=== PATIENT | female | born 1975 | race Two or more races ===

== ENCOUNTER → 2019-01-13 | Outpatient (REF) | payer OTHER ==
[~2019-01-13] MED LIST: CHOL100029 PO; FERR325T3 PO; FEXO180T58 PO; OLOP0.1D OS; PREP1TAB3 PO; PROM25TA12 PO; SING10TA32 PO; TIZA2CAP PO; VALT1TAB PO; WELLTAB38 PO
[2019-01-13 20:21] LABS: COMPLEMENT C3 126 MG/DL (90-180); COMPLEMENT C4 27 MG/DL (10-40)
[2019-01-13 20:39] LABS: CREATININE,RANDOM URINE 78.9 MG/DL; TOTAL PROTEIN,RANDOM URINE 9.3 MG/DL (0.0-12.0)
[2019-01-18 00:06] LABS: ANA (HEP2) Positive (.)
== END ==
LOC: M SFHCRHEU 15:47
PROVIDERS: ATTEND Internal Medicine Rheumatology
DX: R76.8 Other specified abnormal immunological findings in serum (principal)

== ENCOUNTER → 2020-01-18 | Outpatient (CLI) | payer OTHER ==
[~2020-01-18] MED LIST changes: +ALLE180T33 PO; +CETI10CH PO; +D31000TA2 PO; +FERR150C PO; +FOLI1TAB11 PO; +METHACHOLINE KIT (J7674) INH ONE; +vit d 3 PO
--- NOTE | 2020-01-18 11:49 | PFTRPT ---
Visit Date: 01/18/2020 Second ID: [id number] Referring Doctor: LUIS ALBERTO FLANAGAN Height: 63.00 Inches Weight: 150.00 Lbs BSA: 1.71 Diagnosis: R05 QUALITY: Study of excellent technical quality. PROCEDURE: Under protocol, methacholine was administered. At a dose of 2.5 mg or 13.875 CDUs, a 39% decline of the FEV1 was noted. PC of 0.51 is significant. Flow rates did return to baseline post-bronchodilator administration. IMPRESSION: Positive methacholine challenge study. MTDD
== END ==
LOC: M CARPUL 10:50
PROVIDERS: ATTEND Nurse Practitioner Family
DX: R05 Cough (principal)
CPT/HCPCS: 94070; J7674

== ENCOUNTER 2020-01-27 05:42 | Emergency (ER) | payer OTHER ==
[~2020-01-27] VITALS: Ht 160 cm; Wt 69.0 kg
[~2020-01-27 05:42] MED LIST changes: -ALLE180T33 PO; -CETI10CH PO; -D31000TA2 PO; -METHACHOLINE KIT (J7674) INH ONE; -vit d 3 PO
[2020-01-27] MEDS ORDERED: CETI10CH PO (05:53)
[2020-01-27] MEDS ORDERED: ALLE180T33 PO (05:53)
[2020-01-27 06:41] LABS: BASO # 0.1 10^3/uL (0.0-0.2); EOS # 0.4 10^3/uL (0.0-0.5); EOS % 4.2 % (0.0-3.0); HEMATOCRIT 34.1 % (36.0-47.0); HEMOGLOBIN 11.2 g/dl (12.0-15.5); LYMPH # 2.9 10^3/uL (1.5-5.0); LYMPH % 28.6 % (24.0-44.0); MEAN CORPUSCULAR HEMOGLOBIN 27.4 pg (27.0-33.0); MEAN CORPUSCULAR HGB CONC 32.8 g/dl (32.0-36.5); MEAN CORPUSCULAR VOLUME 83.4 fl (80.0-96.0); MONO % 9.6 % (0.0-5.0); NEUTROPHILS # 5.7 10^3/uL (1.5-8.5); NEUTROPHILS % 56.3 % (36.0-66.0); PLATELET COUNT, AUTOMATED 347 10^3/uL (150-450); RED BLOOD COUNT 4.09 10^6/uL (4.00-5.40)
[2020-01-27 07:05] LABS: ALBUMIN 3.3 GM/DL (3.2-5.2); ALT/SGPT 13 U/L (12-78); BILIRUBIN,DIRECT < 0.1 MG/DL (0.0-0.2); BILIRUBIN,TOTAL 0.3 MG/DL (0.2-1.0); BLOOD UREA NITROGEN 11 MG/DL (7-18); CALCIUM LEVEL 8.8 MG/DL (8.5-10.1); CARBON DIOXIDE LEVEL 22 MEQ/L (21-32); CHLORIDE LEVEL 108 MEQ/L (98-107); CK-MB VALUE MASS < 1.0 NG/ML (<3.6); CPK CREATINE PHOSPHOKINASE 89 U/L (26-192); CREATININE FOR GFR 0.85 MG/DL (0.55-1.30); GLOMERULAR FILTRATION RATE > 60.0 (>58); GLUCOSE, FASTING 78 MG/DL (70-100); LIPASE 107 U/L (73-393); MB/CK RELATIVE INDEX 1.12 (< OR =4); POTASSIUM SERUM 4.1 MEQ/L (3.5-5.1); SODIUM LEVEL 137 MEQ/L (136-145); TOTAL PROTEIN 7.1 GM/DL (6.4-8.2); TROPONIN I < 0.02 NG/ML (< 0.10)
[2020-01-27 07:08] LABS: INR 0.96
[2020-01-27] MEDS ORDERED: ISOVUE-370 76% 100ML VIAL As Ordered ONE (07:22)
--- NOTE | 2020-01-27 07:29 | REPVR ---
PROCEDURE INFORMATION: Exam: XR Chest, 1 View Exam date and time: 01/27/2020 6:44 AM Age: 44 years old Clinical indication: Other: Chest pain TECHNIQUE: Imaging protocol: XR of the chest Views: 1 view. COMPARISON: CR CHEST, 2 VIEWS - OUTSIDE PRIOR 10/23/2019 8:16 AM FINDINGS: Limitations: Multiple EKG leads are superimposed on the chest. Lungs: Unremarkable. No consolidation. Pleural space: Unremarkable. No pleural effusion. No pneumothorax. Heart/Mediastinum: Unremarkable. No cardiomegaly. Bones/joints: Unremarkable. IMPRESSION: No acute findings. Electronically signed by: Wei Woo On 01/27/2020 07:29:37 AM
--- NOTE | 2020-01-27 07:47 | REPVR ---
PROCEDURE INFORMATION: Exam: CT Angiography Chest With Contrast Exam date and time: 01/27/2020 7:31 AM Age: 44 years old Clinical indication: Chest pain; Type not specified; Additional info: Chest pain w/ HX of blood clots TECHNIQUE: Imaging protocol: Computed tomographic angiography of the chest with intravenous contrast. 3D rendering (Not supervised by radiologist): MIP and/or 3D reconstructed images were created by the technologist. Radiation optimization: All CT scans at this facility use at least one of these dose optimization techniques: automated exposure control; mA and/or kV adjustment per patient size (includes targeted exams where dose is matched to clinical indication); or iterative reconstruction. Contrast material: ISOVUE 370; Contrast volume: 75 ml; Contrast route: INTRAVENOUS (IV); COMPARISON: CR PORTABLE CHEST X-RAY 01/27/2020 6:12 AM FINDINGS: Pulmonary arteries: There is no evidence of peripheral filling defects within the pulmonary arterial circulation to suggest pulmonary embolism. Aorta: Unremarkable. No aortic aneurysm. No aortic dissection. Thyroid: The thyroid gland is normal. Lungs: Unremarkable. No consolidation. No masses. Pleural space: Unremarkable. No pneumothorax. No pleural effusion. Heart: The RV/LV ratio is 43/45 mm. The pulmonary artery density is 320 units. Lymph nodes: Unremarkable. No enlarged lymph nodes. Liver: A sharply defined 9 mm hypodense lesion of liver segment 2 on axial image 144 probably represents a simple cyst. There are several other similar smaller lesions throughout the liver. The liver is otherwise unremarkable. Gallbladder and bile ducts: The gallbladder is contracted but otherwise normal. The gallbladder is contracted but otherwise normal. Pancreas: The pancreas is normal. Adrenals: The adrenal glands are normal. Bones/joints: Unremarkable. No acute fracture. Soft tissues: Unremarkable. IMPRESSION: 1. A sharply defined 9 mm hypodense lesion of liver segment 2 on axial image 144 probably represents a simple cyst. There are several other similar smaller lesions throughout the liver. The liver is otherwise unremarkable. 2. The RV/LV ratio is 43/45 mm. The pulmonary artery density is 320 units. 3. There is no evidence of peripheral filling defects within the pulmonary arterial circulation to suggest pulmonary embolism. Electronically signed by: Wei Woo On 01/27/2020 07:46:59 AM
[2020-01-27 08:08] LABS: CK-MB VALUE MASS < 1.0 NG/ML (<3.6); CPK CREATINE PHOSPHOKINASE 83 U/L (26-192); TROPONIN I < 0.02 NG/ML (< 0.10)
[2020-01-27 08:34] VITALS: BP 107/61
--- NOTE | 2020-01-28 05:40 | ECGEPIP ---
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
[2020-02-05] MEDS ORDERED: vit d 3 PO (13:21)
[2020-02-05] MEDS ORDERED: D31000TA2 PO (13:21)
== END 2020-01-27 08:36 | disposition home or self-care (01) ==
LOC: M ED 05:42
DX: R07.9 Chest pain, unspecified (principal); J45.909 Unspecified asthma, uncomplicated; Z86.718 Personal history of other venous thrombosis and embolism; Z88.8 Allergy status to other drugs, medicaments and biological substances
CPT/HCPCS: 36415; 71045; 71275; 80048; 80076; 82550; 82553; 83690; 84484; 85025; 85610; 93005; 93041; 94760; 99285; Q9967

== ENCOUNTER 2020-06-24 21:56 | Emergency (ER) | payer OTHER ==
[~2020-06-24] VITALS: Ht 160 cm; Wt 66.8 kg
[~2020-06-24 21:56] MED LIST changes: +ALLE180T33 PO; +CETI10CH PO; +D31000TA2 PO; +vit d 3 PO
[2020-06-24] MEDS ORDERED: [UNRECOGNIZED DRUG - CODE] OP (22:03)
[2020-06-24] MEDS ORDERED: ONDANSETRON 4 MG ORAL DISINTEGRATING TAB PO ONE (22:35)
--- NOTE | 2020-06-24 23:35 | REPVR ---
PROCEDURE INFORMATION: Exam: CT Head Without Contrast Exam date and time: 06/24/2020 10:07 PM Age: 45 years old Clinical indication: Injury or trauma; Fall; Concussion/head injury; Consciousness not specified TECHNIQUE: Imaging protocol: Computed tomography of the head without contrast. Axial and coronal reformatted images were created and reviewed. Radiation optimization: All CT scans at this facility use at least one of these dose optimization techniques: automated exposure control; mA and/or kV adjustment per patient size (includes targeted exams where dose is matched to clinical indication); or iterative reconstruction. COMPARISON: No relevant prior studies available. FINDINGS: Brain: No CT evidence of acute intracranial hemorrhage or acute territorial infarction. No significant mass effect or midline shift. Basal cisterns patent. Cerebral ventricles: Normal in size and configuration. Bones/joints: No acute osseous abnormality. Paranasal sinuses: Unremarkable. No fluid levels. Mastoid air cells: Grossly unremarkable. Soft tissues: Grossly unremarkable. IMPRESSION: No CT evidence of acute intracranial pathology. Electronically signed by: Morro Lacy On 06/24/2020 23:35:54 PM
[2020-06-25 00:28] VITALS: BP 121/64
== END 2020-06-25 00:32 | disposition home or self-care (01) ==
LOC: M ED 21:56
DX: S06.0X0A Concussion without loss of consciousness, initial encounter (principal); W22.8XXA Striking against or struck by other objects, initial encounter; Y92.018 Other place in single-family (private) house as the place of occurrence of the external cause; G93.5 Compression of brain; Z79.899 Other long term (current) drug therapy; Z88.8 Allergy status to other drugs, medicaments and biological substances
CPT/HCPCS: 36415; 70450; 84702; 99283; Q0162

== ENCOUNTER → 2020-10-03 | Outpatient (CLI) | payer OTHER ==
[~2020-10-03] MED LIST changes: +[UNRECOGNIZED DRUG - CODE] OP
--- NOTE | 2020-10-03 09:31 | REP ---
INDICATION: PERSONAL HISTORY OF OTHER VENOUS THROMBOSIS AND EMBOLISM. COMPARISON: None. TECHNIQUE: AP view of the pelvis with neutral and frog-lateral views of the right and left hip FINDINGS: No evidence for acute fracture or dislocation. Hip joints demonstrate relatively mild age-related degenerative changes including increased sclerosis to the acetabular roof with mild joint space narrowing and very subtle early spurring (left greater than right). IMPRESSION: Mild age-related changes to the bilateral hips <Electronically signed by Leroy Gomes > 10/03/20 0985
--- NOTE | 2020-10-03 09:37 | REP ---
INDICATION: PERSONAL HISTORY OF OTHER VENOUS THROMBOSIS AND EMBOLISM COMPARISON: None. TECHNIQUE: AP, lateral, bilateral oblique, and coned-down views of the lumbar spine. FINDINGS: Levoconvex scoliosis is suggested. Lordosis is maintained in the lateral projection. Vertebral bodies are intact. Disc spaces are normal. No evidence for acute fracture/compression injury or subluxation. IMPRESSION: Presumed chronic moderate levoconvex scoliosis. Otherwise relatively normal examination with normal disc spaces and no evidence for degenerative spondylosis. <Electronically signed by Leroy Gomes > 10/03/20 0931
== END ==
LOC: M RAD 08:02
PROVIDERS: ATTEND Internal Medicine Hematology & Oncology
DX: Z86.718 Personal history of other venous thrombosis and embolism (principal)

== ENCOUNTER 2020-10-21 11:56 | Emergency (ER) | payer OTHER ==
[~2020-10-21] VITALS: Ht 154.9 cm; Wt 64.3 kg
--- NOTE | 2020-10-21 14:26 | REP ---
INDICATION: pain/tingling, hx of blood clots COMPARISON: None. TECHNIQUE: Nichole scale and color Doppler evaluation using linear high frequency transducer. FINDINGS: Ultrasound examination of the right lower extremity deep venous structures from the common femoral vein through the calf/ankle to include the peroneal, and tibial veins demonstrates normal compressibility flow and wave patterns in response to respiration and augmentation. There is no evidence for deep venous thrombosis. Contralateral CFV is patent and normal. IMPRESSION: No evidence for deep venous thrombosis. <Electronically signed by Leroy Gomes > 10/21/20 [id number]
[2020-10-21] MEDS ORDERED: ISOVUE-370 76% 100ML VIAL As Ordered ONE (16:12)
[2020-10-21 16:46] LABS: CK-MB VALUE MASS < 1.0 NG/ML (<3.6); CPK CREATINE PHOSPHOKINASE 62 U/L (26-192); MB/CK RELATIVE INDEX 1.61 (< OR =4)
[2020-10-21 18:00] VITALS: BP 138/80
--- NOTE | 2020-10-21 19:04 | REPVR ---
PROCEDURE INFORMATION: Exam: CTA Right Lower Extremity With Contrast Exam date and time: 10/21/2020 2:54 PM Age: 45 years old Clinical indication: Pain; Lower leg; Right; Additional info: Weak distal pulses, calf pain, RO arterial occlusion TECHNIQUE: Imaging protocol: CTA images of the Right lower extremity with intravenous contrast using CT angiography protocol. 3D rendering (Not supervised by radiologist): MIP and/or 3D reconstructed images were created by the technologist. Radiation optimization: All CT scans at this facility use at least one of these dose optimization techniques: automated exposure control; mA and/or kV adjustment per patient size (includes targeted exams where dose is matched to clinical indication); or iterative reconstruction. Contrast material: ISOVUE 370; Contrast route: INTRAVENOUS (IV); COMPARISON: US Duplex, Ext,LOWER veins,unilat 10/21/2020 2:01 PM FINDINGS: Limitations: According to the technologist's notes, the intravenous line failed and intravenous access was not able to be obtained to perform the examination. Only a plug machine operator view of the abdomen, pelvis, and lower extremities was obtained, which is grossly unremarkable. IMPRESSION: No intravenous access obtained in order to perform the examination. Electronically signed by: Pacheco Barillas On 10/21/2020 19:03:45 PM
== END 2020-10-21 18:26 | disposition left against medical advice (07) ==
LOC: M ED 11:56
DX: R22.41 Localized swelling, mass and lump, right lower limb (principal); J45.909 Unspecified asthma, uncomplicated; D64.9 Anemia, unspecified; M32.9 Systemic lupus erythematosus, unspecified; E61.1 Iron deficiency; D68.9 Coagulation defect, unspecified; Z88.8 Allergy status to other drugs, medicaments and biological substances; Z79.899 Other long term (current) drug therapy

== ENCOUNTER 2020-12-21 02:47 | Inpatient (IN) | payer OTHER ==
[2020-12-21] VITALS (23 sets, daily range): BP systolic 110–152; BP diastolic 65–89
[~2020-12-21] VITALS: Ht 160 cm; Wt 57.5 kg
[~2020-12-21 02:47] MED LIST changes: -OLOP0.1D OS; +OLOP0.1D OU; -[UNRECOGNIZED DRUG - CODE] OP; +[UNRECOGNIZED DRUG - CODE] OU
[2020-12-21] MEDS ORDERED: PLAV1TAB2 PO (03:09)
[2020-12-21] MEDS ORDERED: ECOT81TA5 PO (03:09)
--- NOTE | 2020-12-21 03:43 | REPVR ---
PROCEDURE INFORMATION: Exam: XR Chest Exam date and time: 12/21/20 (3:14am) Age: 45 years old Clinical indication: Chest pain TECHNIQUE: Imaging protocol: Portable CXR Views: 1 view COMPARISON: Portable CXR of 01/27/20 FINDINGS: Stable heart size. Large right pneumothorax (perhaps 85% in volume), with collapsed lung seen medially. The left lung is clear. No pleural effusions are seen. IMPRESSION: Large right pneumothorax (perhaps 85% in volume). The left lung is clear. Electronically signed by: Pat Pryor On 12/21/2020 03:42:58 AM
[2020-12-21 04:03] LABS: BASO # 0.1 10^3/uL (0.0-0.2); BASO % 0.6 % (0.0-1.0); EOS # 0.2 10^3/uL (0.0-0.5); EOS % 1.5 % (0.0-3.0); HEMATOCRIT 40.2 % (36.0-47.0); HEMOGLOBIN 13.5 g/dl (12.0-15.5); LYMPH # 1.4 10^3/uL (1.5-5.0); LYMPH % 8.7 % (24.0-44.0); MEAN CORPUSCULAR HEMOGLOBIN 29.7 pg (27.0-33.0); MEAN CORPUSCULAR HGB CONC 33.6 g/dl (32.0-36.5); MEAN CORPUSCULAR VOLUME 88.5 fl (80.0-96.0); MONO # 0.9 10^3/uL (0.0-0.8); MONO % 5.9 % (2.0-8.0); NEUTROPHILS % 82.8 % (36.0-66.0); PLATELET COUNT, AUTOMATED 303 10^3/uL (150-450); RED BLOOD COUNT 4.54 10^6/uL (4.00-5.40); WHITE BLOOD COUNT 15.7 10^3/uL (4.0-10.0)
[2020-12-21] MEDS ORDERED: flumazeniL 0.5 MG/5 ML VIAL As Ordered ONE (04:09)
[2020-12-21] MEDS ORDERED: MIDAZOLAM INJ 2MG/2ML VIAL (J2250 PER 1MG) As Ordered ONE (04:09)
[2020-12-21] MEDS ORDERED: LIDOCAINE 1% MDV 20ML VIAL As Ordered ONE (04:09)
[2020-12-21] MEDS ORDERED: BISACODYL 10 MG SUPP PR PRN (04:10)
[2020-12-21] MEDS ORDERED: LEVALBUTEROL 1.25 MG/0.5 ML CONCENTRATE NEB NEB PRN (04:10)
[2020-12-21] MEDS ORDERED: ONDANSETRON 4MG/2ML VIAL IV PRN (04:10)
[2020-12-21] MEDS ORDERED: PERCOCET 5MG/325MG TAB PO PRN (04:10)
[2020-12-21] MEDS ORDERED: KCL 20MEQ IN D5/NS 1000ML 1,000 ML IV SCH (04:10)
[2020-12-21 04:43] LABS: BLOOD UREA NITROGEN 6 MG/DL (7-18); CARBON DIOXIDE LEVEL 28 MEQ/L (21-32); CHLORIDE LEVEL 104 MEQ/L (98-107); CK-MB VALUE MASS 1.4 NG/ML (<3.6); CPK CREATINE PHOSPHOKINASE 52 U/L (26-192); CREATININE FOR GFR 0.78 MG/DL (0.55-1.30); GLOMERULAR FILTRATION RATE > 60.0 (>58); GLUCOSE, FASTING 90 MG/DL (70-100); MB/CK RELATIVE INDEX 2.69 (< OR =4); POTASSIUM SERUM 3.9 MEQ/L (3.5-5.1); SODIUM LEVEL 138 MEQ/L (136-145); TROPONIN I < 0.02 NG/ML (< 0.10)
[2020-12-21] MEDS ORDERED: MIDAZOLAM INJ 2MG/2ML VIAL (J2250 PER 1MG) IV ONE ×2 (04:53→04:56)
[2020-12-21] MEDS ORDERED: LIDOCAINE 1% MDV 20ML VIAL SC ONE (04:57)
[2020-12-21 04:59] LABS: RSV AMPLIFICATION NEGATIVE (NEGATIVE)
[2020-12-21] MEDS ORDERED: HYDR200T3 PO (05:12)
[2020-12-21] MEDS ORDERED: TOPI50TA9 PO (05:12)
[2020-12-21] MEDS ORDERED: SYMB80INH INH (05:12)
[2020-12-21] MEDS ORDERED: BUPR300T92 PO (05:12)
[2020-12-21] MEDS ORDERED: TRAZ-257 PO (05:12)
[2020-12-21] MEDS ORDERED: HYDR-643 PO (05:12)
[2020-12-21] MEDS ORDERED: HOME MED LIST COMPLETE! XX SCH (05:35)
[2020-12-21] MEDS ORDERED: hydrOXYzine 10 MG TAB PO PRN (05:45)
--- NOTE | 2020-12-21 06:08 | REPVR ---
PROCEDURE INFORMATION: Exam: XR Chest Exam date and time: 12/21/20 (5:11am) Age: 45 years old Clinical indication: Chest tube placement TECHNIQUE: Imaging protocol: Portable CXR Views: 1 view COMPARISON: Portable CXR of 12/21/20 (3:14am) FINDINGS: Comparison is made with a portable CXR done approx. 2 hours ago. A right-sided chest tube has been inserted, with re-expansion of the right lung. No significant pneumothorax is appreciated. The tube has its tip projecting medially on the right, at the aortic arch level. Hazy opacity at the right lung base. The left lung shows mildly prominent vascular markings. No pleural effusions. IMPRESSION: S/P placement of right-sided chest tube. Re-expansion of the right lung. No significant pneumothorax is noted. Hazy opacity at the right lung base. Electronically signed by: Pat Pryor On 12/21/2020 06:08:09 AM
--- NOTE | 2020-12-21 06:18 | HPEPDOC ---
[facility] Medical History & Physical Date of Admission Dec 21, 2020 Date of Service: Dec 21, 2020 History and Physical CHIEF COMPLAINT: Shortness of breath HISTORY OF PRESENT ILLNESS: 45-year-old female history of asthma, Sjogren syndrome, reported protein S deficiency who presented to the emergency department complaining of a one-day history of right-sided chest pain which she thought was indigestion as well as mild shortness of breath. In the emergency department imaging revealed patient had a large right-sided pneumothorax cardiothoracic surgeon Dr. Candelaria was contacted who initially admitted the patient and placed the right-sided chest tube. Hospitalist service was contacted to assume care patient was seen in the PCU with chest tube in place she says she feels a lot better she feels her breathing is improved. She complains of some mild pain at the site of insertion of the chest tube otherwise she has no other complaints. With regards to her diagnosis of protein S deficiency patient [facility] she's never had any history of pulmonary embolism or DVT also denies family history of hypercoagulability disorders. She tells me that she had an issue with clotting relating to her placenta but cannot elaborate more. She tells me ever since the diagnosis she's been placed on aspirin and Plavix to prevent clotting. Hospitalist service will assume medical care of the patient and try to obtain records and/or workup her reported hypercoagulability and Dr. Candelaria will manage the chest tube. PAST MEDICAL/SURGICAL HISTORY: ? 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 REVIEW OF SYSTEMS: 10 point review of systems complete all negative otherwise stated in HPI HOME MEDICATIONS: Please see below. PHYSICAL EXAMINATION: Constitutional: Awake and alert ENT: Sclera are clear. Mucosa is moist. Respiratory: symmetric air movement bilaterally. Chest tube right chest. No use of accessory muscles. Cardiovascular: RRR S1 and S2 are normal, no murmur Gastrointestinal: Abdomen is soft, non distended, non tender, BS present. Musculoskeletal: No lower extremity edema. Neurologic: No focal neurological deficit. Mental Status: A&O x3, normal affect Skin: No visible rash LABORATORY DATA: See below. IMAGING: See chart MICROBIOLOGY: Please see below. ASSESSMENT/PLAN # Right pneumothorax: s/p chest tube, per Dr Santizo # ?Protein S deficiency: hypercoagulability workup ordered. ASA continued, plavix on hold. Morning team to consider hematology consult in vs outpatient. Attempt to obtain records from [place]. # Leukocytosis: likely reactive from the pneumothorax. Fu UA. Repeat CBC tomorrow. # Asthma: Continue home inhalers # Anxiety: continue bupropion # DVT prophylaxis: SCDs. A Yousef Hospitalist Vital Signs Vital Signs Date Time Temp Pulse Resp B/P (MAP) Pulse Ox O2 Delivery O2 Flow Rate FiO2 12/21/20 05:56 22 100 Nasal Cannula 4.0 12/21/20 03:55 97.9 12/21/20 03:47 82 12/21/20 03:45 132/88 (103) Laboratory Data Labs 24H Laboratory Tests 2 12/21/20 03:36: Immature Granulocyte % (Auto) 0.5, Neutrophils (%) (Auto) 82.8H, Lymphocytes (%) (Auto) 8.7L, Monocytes (%) (Auto) 5.9, Eosinophils (%) (Auto) 1.5, Basophils (%) (Auto) 0.6, Neutrophils # (Auto) 13.0H, Lymphocytes # (Auto) 1.4L, Monocytes # (Auto) 0.9H, Eosinophils # (Auto) 0.2, Basophils # (Auto) 0.1, Nucleated Red Blood Cells % (auto) 0.0, Anion Gap 6L, Glomerular Filtration Rate > 60.0, Calcium Level 10.0, Total Creatine Kinase 52, Creatine Kinase MB 1.4, Creatine Kinase MB Relative Index 2.69, Troponin I < 0.02 12/21/20 03:59: Coronavirus (COVID-19)(PCR) NEGATIVE, Influenza Type A (RT-PCR) NEGATIVE, Influenza Type B (RT-PCR) NEGATIVE, Respiratory Syncytial Virus (PCR) NEGATIVE CBC/BMP Laboratory Tests 12/21/20 03:36 Home Medications Scheduled Aspirin (Ecotrin) 81 Mg Tablet., 81 MG PO DAILY Budesonide/Formoterol (Symbicort 80-4.5 Mcg Inhaler) 6.9 Gm Hfa.aer.ad, 2 PUFF INH BID Bupropion HCl (Bupropion Xl) 300 Mg Tab.er.24h, 300 MG PO DAILY Cetirizine HCl (Cetirizine HCl) 10 Mg Tab.chew, 10 MG PO QPM Cholecalciferol (Vitamin D3) (Vitamin D3) 1,000 Unit Tablet, 1,000 UNITS PO DAILY Clopidogrel Bisulfate (Plavix) 75 Mg Tablet, 75 MG PO DAILY Ferrous Sulfate (Ferrous Sulfate) 325 Mg Tablet.dr, 1 TAB PO DAILY Folic Acid (Folic Acid) 1 Mg Tablet, 1 TAB PO DAILY Montelukast Sodium (Singulair) 10 Mg Tablet, 10 MG PO DAILY Naphazoline/Hpm/Ps80/Zinc Sulf (Clear Eyes Complete Eye Drops) 15 Ml Drops, 1 DROP OU DAILY Olopatadine HCl (Olopatadine HCl) 0.1% 5ML Drops, 1 DROP OU BID Pnv,Calcium 72/Iron/Folic Acid (Preplus Ca-Fe 27 mg-FA 1 mg Tb) 1 Each Tablet, 1 TAB PO DAILY Allergies Coded Allergies: ketorolac (Verified Allergy, Unknown, RASH, 01/12/20) CARLOS YAN MD Dec 21, 2020 06:01
[2020-12-21] MEDS: SYMBICORT 80/4.5MCG INHALER 6GM INH SCH ×2 (07:20→19:31)
[2020-12-21] MEDS: LEVALBUTEROL 1.25 MG/0.5 ML CONCENTRATE NEB NEB SCH ×3 (07:20→19:33)
--- NOTE | 2020-12-21 08:22 | REP ---
INDICATION: pneumothorax COMPARISON: 12/21/2020 TECHNIQUE: PA and lateral. FINDINGS: Right-sided chest tube in stable position and no obvious residual pneumothorax is identified. Bilateral lower lobe opacities are suggested and appear slightly improved as compared to prior examination. No effusion. Mediastinum and cardiac silhouette are normal. Skeletal structures are intact. IMPRESSION: 1. Stable right chest tube. No obvious residual pneumothorax. 2. Lower lobe opacities may be slightly improved. <Electronically signed by Leroy Gomes > 12/21/20 0818
[2020-12-21] MEDS: FERROUS SULFATE 325MG TAB PO SCH (08:59)
[2020-12-21] MEDS: buPROPion **XL** TABLET 150MG (WELLBUTRIN XL) PO SCH (08:59)
[2020-12-21] MEDS: ASPIRIN 81MG ENTERIC TABLET PO SCH (08:59)
[2020-12-21] MEDS: FOLIC ACID 1 MG TAB PO SCH (08:59)
[2020-12-21] MEDS: MONTELUKAST 10 MG TAB PO SCH (08:59)
[2020-12-21] MEDS: DOCUSATE SODIUM 100MG CAPSULE PO SCH ×2 (09:00→20:37)
[2020-12-21] MEDS: PANTOPRAZOLE 40MG TAB (PROTONIX) PO SCH (09:00)
[2020-12-21] MEDS ORDERED: MORPHINE 2 MG/ML 1ML VIAL (J2270) IV PRN (09:00)
[2020-12-21] MEDS: VITAMIN D 1,000 INTERNATIONAL UNITS TABLET PO SCH (09:00)
[2020-12-21] MEDS: HEPARIN SOD (PORCINE) 5000UNITS/ML 1ML VIAL/SYRINGE SC SCH ×2 (09:01→20:38)
[2020-12-21] MEDS: OLOPATADINE 0.1% OPHTH SOL 5ML(PATANOL) OU SCH ×2 (09:01→20:44)
[2020-12-21] MEDS: MOM 30ML SUSPENSION UDC PO SCH (09:01)
[2020-12-21 09:26] LABS: INR 1.04
[2020-12-21] MEDS: PERCOCET 5MG/325MG TAB PO PRN ×3 (10:56→23:32)
--- NOTE | 2020-12-21 11:45 | IPNPDOC ---
Date Seen The patient was seen on 12/21/20. Progress Note SUBJECTIVE: Patient is a 45-year-old female with a history of asthma, Sjogren syndrome, reported protein S deficiency. Spoke with patient today regarding her protein S deficiency diagnosis. As per pt, in the patient had a stillbirth due to a clot in her placenta causing demise. At that time, the doctor suspected some hypercoagulable state. In 2005, pt became and at that time, her crab fisher in [place] did a workup which give her a diagnosis of Protein S deficiency. She was then placed on Lovenox for the duration of her and successfully gave to a baby boy. After , the crab fisher in [place] placed her on a regimen of ASA and Plavix which she continues to take. Patient was seen today in bed in moderate distress. She states that her pain is not adequately controlled and that she has a "low pain threshold but a high tolerance for pain medications". She also states that the Percocet does not help with the pain and that the morphine helps a bit. Chest tube is in place; had the patient cough and no air leaks noted. OBJECTIVE PHYSICAL EXAMINATION: VITAL SIGNS: Please see below. Constitutional: in moderate distress; patient was having waves of pain HEENT: head normocephalic atraumatic; moist mucus membranes RESPIRATORY: good breath sounds Left side; diaphragm expansion with inhalation and exhalation; RIGHT chest tube in place; no air leaks noted CARDIOVASCULAR: regular rate and rhythm; no murmurs noted GASTROINTESTINAL: soft, nondistended, normoactive bowel sounds; no tenderness to palpation EXTREMITIES: 2+ pulses in dorsalis pedis bilaterally; no edema noted in lower extremities bilaterally LABORATORY DATA, IMAGING STUDIES, MICROBIOLOGY: Please see below. DVT prophylaxis ordered?: Yes; TEDs and SCDs ASSESSMENT AND PLAN: This is a 45-year-old female presents with shortness of breath found to have a Right sided pneumothorax s/p chest tube placement. PROBLEMS: Right sided pneumothorax - s/p chest tube placement per Dr. Candelaria 12/21/20 - pain control as per Dr. Candelaria Protein S deficiency - prior work up from [place] does not indicate Protein S deficiency - pending hypercoagulability workup - c/w aspirin; hold home plavix - will attempt to obtain records from [place] - after consulting [employer] on 02/05/2020 Dr. Trotter (oncology) ordered hemoglobin electrophoresis and protein S antigen - pt has sickle cell trait but tested negative for protein S Leukocytosis likely reactive from the pneumothorax - pending UA - follow up with tomorrow's AM CBC Asthma - c/w home inhalers Anxiety - c/w home bupropion Possible Sjogren's with positive SSA - seen by Dr. Flores in 04/01/2020 - positive JENNI and SSA; at that time they discussed trial Plaquenil and pt wanted to hold off on medications Hx of TBI x 3 from deployment - Chiari I malformation - seen by Tolu Mack DESIGN STUDIO CONSULTANT ([facility] on 06/18/2020) - f/u as per them VTE prophylaxis - TEDs and SCDs DISPOSITION: pending clinical improvement. VS, I&O, 24H, Fishbone Vital Signs/I&O Vital Signs Date Time Temp Pulse Resp B/P (MAP) Pulse Ox O2 Delivery O2 Flow Rate FiO2 12/21/20 09:24 18 12/21/20 08:00 98.9 80 100 Nasal Cannula 4.0 12/21/20 07:00 128/65 (86) I&O- Last 24 Hours up to 6 AM 12/21/20 06:00 Intake Total 0 ml Output Total 200 ml Balance -200 ml Laboratory Data 24H LABS Laboratory Tests 2 12/21/20 03:36: Immature Granulocyte % (Auto) 0.5, Neutrophils (%) (Auto) 82.8H, Lymphocytes (%) (Auto) 8.7L, Monocytes (%) (Auto) 5.9, Eosinophils (%) (Auto) 1.5, Basophils (%) (Auto) 0.6, Neutrophils # (Auto) 13.0H, Lymphocytes # (Auto) 1.4L, Monocytes # (Auto) 0.9H, Eosinophils # (Auto) 0.2, Basophils # (Auto) 0.1, Nucleated Red Blood Cells % (auto) 0.0, Anion Gap 6L, Glomerular Filtration Rate > 60.0, Calcium Level 10.0, Total Creatine Kinase 52, Creatine Kinase MB 1.4, Creatine Kinase MB Relative Index 2.69, Troponin I < 0.02 12/21/20 03:59: Coronavirus (COVID-19)(PCR) NEGATIVE, Influenza Type A (RT-PCR) NEGATIVE, Influenza Type B (RT-PCR) NEGATIVE, Respiratory Syncytial Virus (PCR) NEGATIVE 12/21/20 08:48: Erythrocyte Sedimentation Rate 18, Prothrombin Time 14.0, Prothromb Time International Ratio 1.04, C-Reactive Protein, Quantitative 0.38H CBC/BMP Laboratory Tests 12/21/20 03:36 GME ATTESTATION GME ATTESTATION My faculty preceptor for this patient encounter was physically present during the encounter and was fully available. All aspects of the patient interview, examination, medical decision making process, and medical care plan development were reviewed and approved by the faculty preceptor. The faculty preceptor is aware and concurs with the plan as stated in the body of this note and will attest to such by his/her cosignature. ATTENDING NOTE I, Jared Claudio, have independently examined this patient and performed my own physical exam, as well as reviewed the documentation and edited where necessary. I have discussed in detail with the resident / student the findings and plan of treatment as documented by the resident / student and edited their note. I agree with their findings and treatment plan and have edited their documentation. I will continue to follow the patient during this hospital stay. Laurie Mcintosh DO Dec 21, 2020 11:02 JARED CLAUDIO MD Dec 21, 2020 11:53
[2020-12-21] MEDS ORDERED: BUPIVACAINE LIPOSOME/PF 1.3% 20ML VIAL (13.3MG/ML)(EXPAREL)(C9290 PER1MG) INFIL ONE (12:00)
--- NOTE | 2020-12-21 20:17 | ECGEPIP ---
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
[2020-12-21] MEDS: CETIRIZINE (ZyrTEC) 5 MG/5 ML UDC DYE FREE PO SCH (20:38)
[2020-12-22] VITALS: BP 141/84
[2020-12-22] MEDS: LEVALBUTEROL 1.25 MG/0.5 ML CONCENTRATE NEB NEB SCH ×4 (01:37→19:36)
[2020-12-22 04:00] VITALS: BP 144/79
[2020-12-22] MEDS: PERCOCET 5MG/325MG TAB PO PRN ×4 (04:43→21:11)
[2020-12-22 05:32] LABS: BASO # 0.1 10^3/uL (0.0-0.2); BASO % 0.7 % (0.0-1.0); EOS # 0.5 10^3/uL (0.0-0.5); EOS % 5.1 % (0.0-3.0); HEMATOCRIT 35.6 % (36.0-47.0); HEMOGLOBIN 11.8 g/dl (12.0-15.5); LYMPH # 2.3 10^3/uL (1.5-5.0); MEAN CORPUSCULAR HEMOGLOBIN 29.5 pg (27.0-33.0); MEAN CORPUSCULAR HGB CONC 33.1 g/dl (32.0-36.5); MONO # 0.8 10^3/uL (0.0-0.8); MONO % 7.8 % (2.0-8.0); NEUTROPHILS # 6.6 10^3/uL (1.5-8.5); NEUTROPHILS % 63.7 % (36.0-66.0); PLATELET COUNT, AUTOMATED 285 10^3/uL (150-450); WHITE BLOOD COUNT 10.3 10^3/uL (4.0-10.0)
[2020-12-22 05:55] LABS: BLOOD UREA NITROGEN 7 MG/DL (7-18); CALCIUM LEVEL 8.4 MG/DL (8.5-10.1); CARBON DIOXIDE LEVEL 30 MEQ/L (21-32); CHLORIDE LEVEL 103 MEQ/L (98-107); CREATININE FOR GFR 0.87 MG/DL (0.55-1.30); GLOMERULAR FILTRATION RATE > 60.0 (>58); GLUCOSE, FASTING 111 MG/DL (70-100); POTASSIUM SERUM 3.4 MEQ/L (3.5-5.1); SODIUM LEVEL 139 MEQ/L (136-145)
[2020-12-22] MEDS ORDERED: POTASSIUM CHLORIDE 10MEQ SR TABLET PO ONE (07:10)
[2020-12-22] MEDS: NORCO, ANEXSIA 5/325MG TABLET (HYDROcodone/ACETAMINOPHEN) PO PRN (07:10)
[2020-12-22] MEDS: SYMBICORT 80/4.5MCG INHALER 6GM INH SCH ×2 (07:22→19:36)
--- NOTE | 2020-12-22 07:36 | REPVR ---
PROCEDURE INFORMATION: Exam: CT Chest Without Contrast; Diagnostic Exam date and time: 12/22/2020 6:11 AM Age: 45 years old Clinical indication: Other: ? Bleb disease TECHNIQUE: Imaging protocol: Diagnostic computed tomography of the chest without contrast. 3D rendering (Not supervised by radiologist): MIP and/or 3D reconstructed images were created by the technologist. Radiation optimization: All CT scans at this facility use at least one of these dose optimization techniques: automated exposure control; mA and/or kV adjustment per patient size (includes targeted exams where dose is matched to clinical indication); or iterative reconstruction. COMPARISON: CT ANGIO CHEST 01/27/2020 7:27 AM FINDINGS: Tubes, catheters and devices: Right chest tube terminates in the anterior superior chest abutting the mediastinum. Lungs: Subsegmental right lower lobe atelectasis. Pleural spaces: Minimal residual right pneumothorax. Trace right pleural effusion. Heart: Small pericardial effusion. Aorta: No aortic aneurysm. Lymph nodes: No enlarged lymph nodes. Liver: Several hepatic cysts are noted. Bones/joints: No acute fracture. Soft tissues: Small amount of soft tissue gas is present in the right anterior chest wall. Other findings: Evaluation of solid organs and vasculature is suboptimal lacking intravenous contrast. IMPRESSION: 1. Trace residual right-sided pneumothorax with apical chest tube in place. 2. No pulmonary bulllous/emphysematous disease. 3. Small pericardial effusion. 4. Trace right pleural effusion. Electronically signed by: Gurwinder Quiroga On 12/22/2020 07:36:18 AM
--- NOTE | 2020-12-22 07:44 | REPVR ---
PROCEDURE INFORMATION: Exam: XR Chest Exam date and time: 12/22/2020 6:44 AM Age: 45 years old Clinical indication: Other: Chest tube; Additional info: After chtest tube placement TECHNIQUE: Imaging protocol: XR of the chest. Views: 2 views. COMPARISON: CR Chest, 2 view PA, Lat 12/21/2020 7:48 AM FINDINGS: An apically directed right-sided chest tube tip terminates near midline superior mediastinum. Cardiac silhouette is not enlarged. Mild streaky right basilar opacities similar to prior. Trace right pleural effusion. No radiographically apparent residual pneumothorax. IMPRESSION: No radiographically apparent pneumothorax with right chest tube in place. Note there is trace residual pneumothorax on the chest CT performed directly after this radiograph. Electronically signed by: Gurwinder Quiroga On 12/22/2020 07:43:57 AM
[2020-12-22 08:00] VITALS: BP 122/72
[2020-12-22] MEDS: MONTELUKAST 10 MG TAB PO SCH (08:34)
[2020-12-22] MEDS: VITAMIN D 1,000 INTERNATIONAL UNITS TABLET PO SCH (08:34)
[2020-12-22] MEDS: FOLIC ACID 1 MG TAB PO SCH (08:34)
[2020-12-22] MEDS: buPROPion **XL** TABLET 150MG (WELLBUTRIN XL) PO SCH (08:34)
[2020-12-22] MEDS: ASPIRIN 81MG ENTERIC TABLET PO SCH (08:34)
[2020-12-22] MEDS: FERROUS SULFATE 325MG TAB PO SCH (08:34)
[2020-12-22] MEDS: OLOPATADINE 0.1% OPHTH SOL 5ML(PATANOL) OU SCH ×2 (08:35→20:27)
[2020-12-22] MEDS: DOCUSATE SODIUM 100MG CAPSULE PO SCH ×2 (08:35→20:27)
[2020-12-22] MEDS: MOM 30ML SUSPENSION UDC PO SCH (08:35)
[2020-12-22] MEDS: HEPARIN SOD (PORCINE) 5000UNITS/ML 1ML VIAL/SYRINGE SC SCH ×2 (08:35→20:27)
[2020-12-22] MEDS: PANTOPRAZOLE 40MG TAB (PROTONIX) PO SCH (08:35)
--- NOTE | 2020-12-22 09:07 | IPNPDOC ---
Text Note Date of Service The patient was seen on 12/22/20. NOTE Subjective: Patient is a 45-year-old -Italian female with a PMHx of Asthma, Sjogren's, Sickle Cell Trait, iron deficiency, Reported clotting disorder (was on ASA / Plavix) who presented to the emergency room with complaints of shortness of breath. Patient was found to have a right-sided pneumothorax and a chest tube was placed on 12/[address] Candelaria of cardiothoracic surgery. Patient was admitted to hospital service for further evaluation and treatment. Patient reported that she had a clotting disorder and was on aspirin and Plavix for which she reported was protein S deficiency. Review of the medical record via [employer] has revealed the patient has normal protein S levels. Patient does follow with hematology (at [facility]) and rheumatology (at [facility]) as an outpatient. Patient was seen and examined at the bedside. Currently patient reports that her breathing is doing significantly better compared to yesterday. She denies any chest pain or cough. Has not expressed any nausea, vomiting, abdominal pain, diarrhea, or urinary discomfort. Objective: Vitals (See below) General: Lying in bed, appears comfortable, AAOx3 HEENT: NC, AT CVS: +S1S2 Lungs: Fair air entry b/l, -w/r/r, R sided anterior chest tube in place Abdomen: Soft, ND, NT Extremities: - Edema, - Calf tenderness Imaging: CXR 12/21: Large right pneumothorax (perhaps 85% in volume). The left lung is clear. CXR 12/21: S/P placement of right-sided chest tube. Re-expansion of the right lung. No significant pneumothorax is noted. Hazy opacity at the right lung base. CXR 12/21: 1. Stable right chest tube. No obvious residual pneumothorax. 2. Lower lobe opacities may be slightly improved. CXR 12/22: No radiographically apparent pneumothorax with right chest tube in place. Note there is trace residual pneumothorax on the chest CT performed directly after this radiograph. CT Chest 12/22: 1. Trace residual right-sided pneumothorax with apical chest tube in place. 2. No pulmonary bulllous/emphysematous disease. 3. Small pericardial effusion. 4. Trace right pleural effusion. Assessment and plan: Right sided pneumothorax - Patient reported significant improvement of her breathing - Denies any chest pain - There does not appear to be any evidence of air leak this morning - Currently appears to be saturating well on room air - s/p chest tube placement per Dr. Candelaria 12/21/20 - c/w pain control Clotting disorder? - Patient has a history of stillbirth in 1995; was told in 2008 by a flight control specialist in [place] that she had protein S deficiency - Workup completed over last 1 year. Does not reveal any suppressed protein S levels - Lab work included in chart based on [facility] review - Current hypercoagulability workup remains pending - c/w aspirin; Plavix has been held at this time - Patient follows with oncology/hematology locally; will have outpatient follow- up on discharge Leukocytosis - likely 2/2 reactive process 2/2 pneumothorax - White cell count has trended down - Remains hemodynamically stable and afebrile Possible Sjogren's with positive SSA - Seen by Dr. Flores (Rheumatology at [facility]) in 04/01/2020 - positive JENNI and SSA - Based on documentation at that time it was reported the patient does not meet the criteria for SLE and has few symptoms suggestive of Sjogren's - At that time. 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 - Chiari I malformation - Seen by Tolu Mack NP ([facility] on 06/18/2020); was advised that they will continue to follow imaging - Will have outpatient follow-up with [facility] as needed on discharge Sickle cell trait - This has been confirmed based on documentation from oncology at [facility] - c/w Ferrous sulfate - Follows with hematology and oncology locally Chronic Asthma - No evidence of exacerbation - c/w inhaled therapy as ordered Hypokalemia - Will supplement Anxiety - c/w Bupropion GERD - c/w Protonix DVT prophylaxis - c/w TEDs/Sequentials Disposition: - Pending clinical improvement Angelika MCHUGH, I+O Angelika MCHUGH I+O Laboratory Tests 12/22/20 05:11 Vital Signs Date Time Temp Pulse Resp B/P (MAP) Pulse Ox O2 Delivery O2 Flow Rate FiO2 12/22/20 07:40 17 12/22/20 07:26 99 12/22/20 04:00 0.0 12/22/20 04:00 97.9 144/79 (100) 99 Nasal Cannula I&O- Last 24 Hours up to 6 AM 12/22/20 06:00 Intake Total 1275 ml Output Total 768 ml Balance 507 ml MAN BUSTAMANTE MD Dec 22, 2020 09:07
[2020-12-22 12:00] VITALS: BP 127/68
[2020-12-22] MEDS ORDERED: SLF 3 ML SYR IV PRN (14:00)
[2020-12-22] MEDS: SLF 3 ML SYR IV SCH ×2 (14:05→20:30)
[2020-12-22 16:00] VITALS: BP 124/67
[2020-12-22 20:00] VITALS: BP 128/71
[2020-12-22] MEDS: CETIRIZINE (ZyrTEC) 5 MG/5 ML UDC DYE FREE PO SCH (20:27)
[2020-12-23] VITALS: BP 128/71
[2020-12-23] MEDS: LEVALBUTEROL 1.25 MG/0.5 ML CONCENTRATE NEB NEB SCH ×4 (01:07→19:57)
[2020-12-23] MEDS: PERCOCET 5MG/325MG TAB PO PRN ×4 (01:15→19:54)
[2020-12-23 04:00] VITALS: BP 135/79
[2020-12-23 04:31] LABS: BASO # 0.1 10^3/uL (0.0-0.2); BASO % 0.8 % (0.0-1.0); EOS # 0.5 10^3/uL (0.0-0.5); EOS % 4.7 % (0.0-3.0); HEMATOCRIT 35.7 % (36.0-47.0); HEMOGLOBIN 11.7 g/dl (12.0-15.5); LYMPH # 2.7 10^3/uL (1.5-5.0); LYMPH % 28.3 % (24.0-44.0); MEAN CORPUSCULAR HEMOGLOBIN 29.2 pg (27.0-33.0); MEAN CORPUSCULAR HGB CONC 32.8 g/dl (32.0-36.5); MONO # 0.9 10^3/uL (0.0-0.8); MONO % 9.3 % (2.0-8.0); NEUTROPHILS # 5.4 10^3/uL (1.5-8.5); NEUTROPHILS % 56.1 % (36.0-66.0); PLATELET COUNT, AUTOMATED 289 10^3/uL (150-450); RED BLOOD COUNT 4.01 10^6/uL (4.00-5.40); WHITE BLOOD COUNT 9.7 10^3/uL (4.0-10.0)
[2020-12-23 04:49] LABS: BLOOD UREA NITROGEN 6 MG/DL (7-18); CALCIUM LEVEL 8.2 MG/DL (8.5-10.1); CARBON DIOXIDE LEVEL 30 MEQ/L (21-32); CHLORIDE LEVEL 106 MEQ/L (98-107); CREATININE FOR GFR 0.72 MG/DL (0.55-1.30); GLOMERULAR FILTRATION RATE > 60.0 (>58); GLUCOSE, FASTING 81 MG/DL (70-100); POTASSIUM SERUM 3.7 MEQ/L (3.5-5.1); SODIUM LEVEL 140 MEQ/L (136-145)
[2020-12-23] MEDS: SLF 3 ML SYR IV SCH ×3 (05:43→21:21)
[2020-12-23] MEDS: SYMBICORT 80/4.5MCG INHALER 6GM INH SCH ×2 (07:25→19:57)
[2020-12-23 07:55] VITALS: BP 137/81
--- NOTE | 2020-12-23 08:39 | IPNPDOC ---
Date Seen The patient was seen on 12/23/20. Progress Note SUBJECTIVE: 45-year-old -Tristanian female with a PMHx of Asthma, Sjogren's, Sickle Cell Trait, iron deficiency, reported clotting disorder who presented to the ED with complaints of shortness of breath. Patient was found to have a right-sided pneumothorax and a chest tube was placed on 12/[address] Candelaria (cardiothorax surgery) surgery. Patient reported that she had a clotting disorder (Protein S deficiency) and was on aspirin and Plavix. However, [facility] medical [facility] revealed the patient has normal protein S levels. Patient does follow with hematology (at [facility]) and rheumatology (at [facility]) as an outpatient. Patient was seen lying comfortably in bed. She states that she is feeling much better and is not complaining of any shortness of breath this morning. The only time she is experiencing pain is when she moves around in bed causing the chest tube to move around; pain is adequately controlled with medication. OBJECTIVE PHYSICAL EXAMINATION: VITAL SIGNS: Please see below. GENERAL: in no acute distress; lying comfortably in bed HEENT: head normocephalic atraumatic; moist mucus membranes CARDIOVASCULAR: regular rate and rhythm; no murmurs noted RESPIRATORY: good air entry bilaterally; clear to auscultation bilaterally; no air leaks noted ABDOMINAL: soft, nondistended, normoactive bowel sounds; no tenderness to palpation EXTREMITIES: 2+ pulses in dorsalis pedis bilaterally; no edema noted in lower extremities bilaterally LABORATORY DATA, IMAGING STUDIES, MICROBIOLOGY: Please see below. CXR 12/21: Large right pneumothorax (perhaps 85% in volume). The left lung is clear. CXR 12/21: S/P placement of right-sided chest tube. Re-expansion of the right lung. No significant pneumothorax is noted. Hazy opacity at the right lung base. CXR 12/21: 1. Stable right chest tube. No obvious residual pneumothorax. 2. Lower lobe opacities may be slightly improved. CXR 12/22: No radiographically apparent pneumothorax with right chest tube in place. Note there is trace residual pneumothorax on the chest CT performed directly after this radiograph. CT Chest 12/22: 1. Trace residual right-sided pneumothorax with apical chest tube in place. 2. No pulmonary bulllous/emphysematous disease. 3. Small pericardial effusion. 4. Trace right pleural effusion. DVT prophylaxis ordered?: Yes; TEDs and Sequentials ASSESSMENT AND PLAN: This is a 45-year-old female presenting with shortness of breath found to have a Right sided pneumothorax s/p chest tube placement. PROBLEMS: Right sided pneumothorax - improved breathing and only has pain w/ movement - air leak noted this morning - s/p chest tube placement per Dr. Candelaria 12/21/20; - c/w pain control - CTS on consultation; appreciate their input; will get AM CXR ?Clotting disorder - Pt has a history of stillbirth in 1995; was told in 2008 by a [employer] piping designer in [place] that she had protein S deficiency; workup done over last 1 year does not reveal any suppressed protein S levels (based on review of chart in [facility]) - Pending current hypercoagulability workup - c/w aspirin; continue holding Plavix - Pt follows with oncology/hematology locally; f/u outpatient after d/c Leukocytosis - likely 2/2 reactive process 2/2 pneumothorax - WBC trending down & hemodynamically stable & afebrile Possible Sjogren's with positive SSA - Seen by Dr. 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 - Chiari I malformation - Seen by Tolu Mack NP ([facility] on 06/18/2020); was advised that they will continue to follow imaging - f/u outpatient at [facility] after d/c Sickle cell trait - Confirmed based on documentation from oncology at [facility] - c/w Ferrous sulfate - f/u outpatient after d/c Chronic Asthma - c/w home inhalers Hypokalemia - after KCL 40meq yesterday, potassium uptrended to 3.7 Anxiety - c/w Bupropion GERD - c/w Protonix VTE prophylaxis - c/w TEDs and Sequentials DISPOSITION: pending clinical improvement VS, I&O, 24H, Fishbone Vital Signs/I&O Vital Signs Date Time Temp Pulse Resp B/P (MAP) Pulse Ox O2 Delivery O2 Flow Rate FiO2 12/23/20 07:55 98.8 85 20 137/81 (99) 100 Room Air 12/22/20 20:00 I&O- Last 24 Hours up to 6 AM 12/23/20 06:00 Intake Total 660 ml Output Total 800 ml Balance -140 ml Laboratory Data 24H LABS Laboratory Tests 2 12/23/20 04:08: Immature Granulocyte % (Auto) 0.8, Neutrophils (%) (Auto) 56.1, Lymphocytes (%) (Auto) 28.3, Monocytes (%) (Auto) 9.3H, Eosinophils (%) (Auto) 4.7H, Basophils (%) (Auto) 0.8, Neutrophils # (Auto) 5.4, Lymphocytes # (Auto) 2.7, Monocytes # (Auto) 0.9H, Eosinophils # (Auto) 0.5, Basophils # (Auto) 0.1, Nucleated Red Blood Cells % (auto) 0.0, Anion Gap 4L, Glomerular Filtration Rate > 60.0, Calcium Level 8.2L CBC/BMP Laboratory Tests 12/23/20 04:08 GME ATTESTATION GME ATTESTATION My faculty preceptor for this patient encounter was physically present during the encounter and was fully available. All aspects of the patient interview, examination, medical decision making process, and medical care plan development were reviewed and approved by the faculty preceptor. The faculty preceptor is aware and concurs with the plan as stated in the body of this note and will attest to such by his/her cosignature. ATTENDING NOTE I, Jared Claudio, have independently examined this patient and performed my own physical exam, as well as reviewed the documentation and edited where necessary. I have discussed in detail with the resident / student the findings and plan of treatment as documented by the resident / student and edited their note. I agree with their findings and treatment plan and have edited their documentation. I will continue to follow the patient during this hospital stay. Laurie Mcintosh DO Dec 23, 2020 08:39 JARED CLAUDIO MD Dec 23, 2020 17:26
--- NOTE | 2020-12-23 08:43 | REP ---
INDICATION: after chtest tube placement COMPARISON: 12/22/2020 TECHNIQUE: PA and lateral. FINDINGS: Right apical chest tube again identified. There is a small right apical pneumothorax now appreciated. Trace right basilar atelectasis and small pleural effusion noted. Left hemithorax appears clear. Mediastinum and cardiac silhouette are normal. Skeletal structures are intact. IMPRESSION: Current examination now demonstrates a small right apical pneumothorax along with relatively stable right basilar atelectasis and small pleural effusion. <Electronically signed by Leroy Gomes > 12/23/20 [id number]
--- NOTE | 2020-12-23 08:44 | CR ---
CONSULTATION DATE: 12/21/2020 REASON FOR CONSULTATION: The patient was seen at the request of the emergency room, Dr. Anne for a near complete right pneumothorax. HISTORY OF PRESENT ILLNESS: The patient is a 45-year-old black female who yesterday mamadou was eating some chicken and felt "indigestion". The indigestion was manifested as right-sided chest pain and discomfort. The pain has become more intense over the past 18 hours and she finally sought medical attention in the emergency room. She denies a cough, but does say she is becoming more short of breath. She went to the [facility] last night and they assure her that everything was "all right." She also states that chest x-ray was taken. She has had no fevers, chills or sweats and no dysphagia. There is no sputum production and certainly no hemoptysis. She comes labeled as a protein S deficiency and she is on Plavix. The medical record however indicates that she has sickle cell trait and there is mention of protein S deficiency. She was placed on Plavix about a month ago by the [facility]. PAST MEDICAL HISTORY: 1. Some type of "S disease, probably sickle cell trait and not protein S deficiency. 2. Traumatic brain injury. 3. Asthma. 4. Iron deficiency. 5. Anxiety. 6. Depression. PAST SURGICAL HISTORY: To be determined later. MEDICATIONS AT HOME: Aspirin 81 mg q day, Symbicort 80 - 4.5 inhaler twice a day, bupropion 300 mg ER q day, cetrizine 10mg every night at bedtime, vitamin D calciferol 1000 units q day, Plavix 75 mg q day, ferrous sulfate 325 mg q day, folic acid 1 mg q day, Singulair 10 mg q day, olopatadine 0.1% one drop OU twice a day. TRAVEL HISTORY: She was born in [place] and has been in the for 24 years, was deployed to [place] and [place]. She has also been to the [facility]. EXPOSURES: No dogs, birds or cats at home. States that she is allergic to pets. ALLERGIES: Ketorolac which produces a rash. 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 Unclear about asbestos exposure. HABITS: Does not smoke, drink alcohol or use illicit drugs. FAMILY HISTORY: Not pertinent to the acute situation. REVIEW OF SYSTEMS: Without fever, chills, sweats or night sweats. Eyes: Without diplopia, without prior jaundice, wears reading glasses. Nose: No epistasis. Mouth: Has her own teeth with three implants. Respiratory: See history of present illness. Cardiac: Has palpations and sometimes tachycardias. No prior history of myocardial infarctions, intermittent claudication. States that during her , her placenta had blood clots. Has never had a deep venous thrombosis (DVT). Gastrointestinal (GI): With nausea and vomiting today, but not before. Without diarrhea, constipation and no hematochezia or hematemesis. Genitourinary (): Without dysuria or hematuria or prior renal stones. Neurologic: Without paresthesias, paralyses, amaurosis fugax or seizures. Endocrine: Without diabetes, without thyroid disease. Psychiatric: Being treated for depression and has anxiety, prior traumatic brain injury. PHYSICAL EXAMINATION: Well developed, well nourished black female, sitting erect with difficulty breathing. Vital signs: Temperature 97.9, heart rate 82 and in sinus rhythm, respiratory rate 20 to 22 without the use of accessory muscles. She is 100% saturated on room air. Blood pressure is 132/88. Head: Normocephalic. Eyes: Pupils equal and reactive to light. Extraocular motions are intact. Sclerae nonicteric. Nose without deformity. Mouth shows mucous membranes to be pink and moist. Lips and commissures without lesions or thrush. Neck is supple. There is no jugular venous distention. No subcutaneous emphysema. Trachea is midline. Lungs show markedly decreased breath sounds on the right side and hyperresonance percussion on the right side. The left side shows normal fascicular sounds. Percussion is full to the diaphragm on the left. There are no wheezes, rhonchi or rales. Cardiac examination shows a tachycardia without murmurs, clicks, gallops or rubs. I cannot feel her PMI. S1, S2 are normal. Abdomen is soft, nontender. Bowel sounds are positive. There is no hepatomegaly, no costovertebral angle (CVA) tenderness. Extremities show no pretibial edema, no calf tenderness. No differential swelling of upper extremities. Skin is warm, dry and perfuse without cyanosis or melena including nailbeds and knees. Neuro: CN II-XII intact with gross motor intact. Gait is intact. Psychiatric: Alert, awake and oriented times 3 with appropriate mood and affect and conversational. INVESTIGATIONS: Her white count is 15.7 with a hemoglobin and hematocrit of 13.5 and 40.2 with a platelet count of 303. Differential shows 82% neutrophils, 8% lymphocytes and 5% monocytes. There are no immature forms or toxic granulosis. Her chemistry showed normal electrolytes with BUN and creatinine of 6 and 0.78, a glucose of 90 and a calcium of 10. Troponin is less than 0.02. Albumin in April was 4.0. She is COVID negative and influenza A and B negative and RSV negative. Her chest x-ray shows a complete pneumothorax on the right side with a minimal shift to the left. There is no subcutaneous emphysema. It was done portably. Costophrenic angles are sharp. IMPRESSION: 1. Near 100% pneumothorax. 2. Respiratory distress. 3. Some of type of "S" probably documented as sickle cell trait and not protein S deficiency. 4. Asthma. 5. Anxiety. 6. Depression. 7. History of traumatic brain injury. PLAN/DISCUSSION: I will immediately place an anterior/superior chest tube to relieve the pneumothorax. [facility] and particularly the [facility] x-ray the done yesterday. I do not believe that she has protein S deficiency, I am going to discontinue her Plavix. As all of the documentation in our medical record indicates sickle cell trait. I am not aware of anticoagulants being used for sickle cell trait. I will ask the hospitalist to sort that out. I recommended that Ms. Castillo obtain a primary care doctor here as she lives here in [place].
--- NOTE | 2020-12-23 09:06 | IPN ---
PROGRESS NOTE DATE: 12/21/2020 SUBJECTIVE: Ms. Castillo was complaining of intense pain particularly directly into her back after chest tube suction earlier this morning. It hurts for her to breathe and cough. I therefore anesthetized the chest tube insertion site with Exparel and pulled the chest tube back 2 cm with relief of her pain. Prior to that, neither Percocet nor Morphine would touch her. Her vital signs shows a T-max of 98.9 with a heart rate that ranges between 68 and 115, in sinus rhythm, respiratory rate of 12 to 30 without use of accessory muscles who is 97% to 100% saturated on 4 liters nasal cannula. Blood pressure is ranging between 112/87 to 152/84. Her intake and output this morning shows 120 in and 200 out for a negativity of 80 ml. She is putting out the chest tube and there is no air leak on __ cm of suction. OBJECTIVE: Her lungs with equal breath sounds on either side. There is some expiratory wheezing on either side, more on the right than the left. Percussion is full to the diaphragm and no longer hyperresonant. Cardiac exam is without murmurs, clicks, gallops or rubs. I cannot feel her PMI. Her lung sounds are normal. Abdomen is soft, nontender. Bowel sounds are positive. There is no hepatomegaly. No CVA tenderness. Extremities show no pretibial edema. No calf tenderness. No differential swelling of the upper extremities. Skin is warm, dry and perfused without cyanosis or mottling including that of nailbeds and knees. Neck is supple. There is no jugular venous distention. No subcutaneous emphysema. Trachea is midline. Mouth shows the mucous membranes to be pink and moist. Lips and commissures without lesions or thrush. Eyes shows her pupils to be equal and reactive. Extraocular movements intact. Sclera nonicteric intake. Neurologic: Cranial nerves II through XII intact with intact gross motor and gross sensation intact. Gait not tested. Psychiatric shows her to be awake, alert and oriented x3 with appropriate mood and affect and conversational. LABORATORY DATA: Her chemistries and CBC was discussed in her admission consultation. PT/INR was 14 and 1.04 and hypercoagulability workup is pending. Her chest x-ray shows her lungs fully expanded to chest wall with sharp costophrenic angles. Chest tube is heading posteriorly towards the vertebral gutter. As noted above, it is pulled back about 2 cm. IMPRESSION: 1. Spontaneous pneumothorax. 2. Asthma. 3. Sickle cell trait. 4. Sjgren's syndrome. 5. Traumatic brain injury. PLAN/DISCUSSION: Since I pulled the chest tube a little bit she is in a lot less pain. I will continue on suction today and obtain a CT scan tomorrow. 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 At this is her first pneumothorax, she will not need surgical intervention at this time. She is very concerned about going back to full activity. I have indicated to her that she will need at least six weeks of no heavy lifting or vigorous exertion. She only has a 30% chance of the pneumothorax recurring again and therefore the odds are in her favor and therefore I will not recommend taking her to the Operating Room.
--- NOTE | 2020-12-23 09:16 | IPN ---
PROGRESS NOTE DATE: 12/22/2020 SUBJECTIVE: Ms. Castillo got immediate relief after pulling the chest tube back. She is doing well this morning. There is no air leak. CT scan showed a bleb at the apex of her right upper lobe. Her vital signs shows a T-max of 98.0 with a heart rate that ranges between 71 and 99, in sinus rhythm, respiratory rate 12 to 20 without the use of accessory muscles who is 99% saturated on 4 liters nasal cannula. Her blood pressure is ranging between 122/72 to 144/79. Her intake and output over the past 24 hours has been ordered as 1275 in and 968 for a positivity of 300 ml. She has put 18 ml out the chest tube and there is no air leak. She weighs 61.3 kilos today compared to 58.6 kilos yesterday. OBJECTIVE: She has equal breath sounds on either side. I no longer hear the bilateral wheezing. She has normal vesicular sounds. Percussion is full to the diaphragm. Cardiac exam is without murmurs, clicks, gallops or rubs. I cannot feel her PMI. S1 and S2 are normal. Abdomen is soft, nontender. Bowel sounds are positive. There is no hepatomegaly. No CVA tenderness. Extremities show no pretibial edema. No calf tenderness. No differential swelling of the upper extremities. Her skin is warm, dry and perfused without cyanosis or mottling including that of nailbeds and knees. Neck is supple. There is no jugular venous distention. No subcutaneous emphysema. Trachea is midline. Mouth shows the mucous membranes to be pink and moist. Lips and commissures without lesions or thrush. Eyes shows pupils equal and reactive. Extraocular muscles intact. Sclera nonicteric. Neurologic: Cranial nerves II-XII intact with normal gross motor and gross sensation intact. Gait is not tested. Psychiatric shows her to be awake, alert and oriented x3 with appropriate mood and affect and conversational. LABORATORY DATA: Her white count today is 10.3 with a hemoglobin and hematocrit of 11.8 and 35.6 respectively down from 13.5 and 40.2 yesterday. I suspect there was an element of dehydration. Platelet count is 285,000 and differential shows 63% neutrophils, 22% lymphocytes, 7% monocytes. There are no immature forms or toxic granulations. Her electrolytes are normal except for a potassium of 3.4 for which the Hospitalist service has given her an oral supplement. Creatinine is 0.87 with a BUN of 7. Calcium is 8.4 with a glucose of 111. Her hypercoagulability studies are still pending. Her chest x-ray shows her lung fully expanded to the chest wall. Costophrenic angles are sharp. There is no subcutaneous emphysema. Her CT scan done yesterday shows a single bleb at the apex of the right upper lobe. 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 IMPRESSION: 1. Spontaneous pneumothorax of the right side. 2. Sickle cell trait. 3. Anemia. 4. Sjgren's syndrome. 5. History of traumatic brain injury. 6. Asthma. 7. Hypokalemia. PLAN AND DISCUSSION: I will discontinue her chest tube suction today. The Hospitalist service has already addressed her hypokalemia. If all goes well and the chest x-ray shows her lungs are fully expanded to the chest wall tomorrow I will remove the chest tube and plan for discharge on Wednesday.
[2020-12-23] MEDS: HEPARIN SOD (PORCINE) 5000UNITS/ML 1ML VIAL/SYRINGE SC SCH ×2 (10:00→21:21)
[2020-12-23] MEDS: DOCUSATE SODIUM 100MG CAPSULE PO SCH ×2 (10:01→21:21)
[2020-12-23] MEDS: PANTOPRAZOLE 40MG TAB (PROTONIX) PO SCH (10:01)
[2020-12-23] MEDS: buPROPion **XL** TABLET 150MG (WELLBUTRIN XL) PO SCH (10:02)
[2020-12-23] MEDS: MONTELUKAST 10 MG TAB PO SCH (10:02)
[2020-12-23] MEDS: VITAMIN D 1,000 INTERNATIONAL UNITS TABLET PO SCH (10:02)
[2020-12-23] MEDS: FOLIC ACID 1 MG TAB PO SCH (10:02)
[2020-12-23] MEDS: MOM 30ML SUSPENSION UDC PO SCH (10:07)
[2020-12-23] MEDS: ASPIRIN 81MG ENTERIC TABLET PO SCH (10:07)
[2020-12-23] MEDS: FERROUS SULFATE 325MG TAB PO SCH (10:07)
[2020-12-23] MEDS: OLOPATADINE 0.1% OPHTH SOL 5ML(PATANOL) OU SCH ×2 (10:14→21:00)
[2020-12-23] MEDS ORDERED: KETOROLAC 30 MG/ML 1ML VIAL IV ONE (11:30)
[2020-12-23 12:00] VITALS: BP 139/79
--- NOTE | 2020-12-23 12:51 | IPN ---
PROGRESS NOTE DATE: 12/23/2020 SUBJECTIVE: Ms. Castillo has dropped her lung again. She has an air leak and I have placed her back to suction. It looks as though the bleb is not healed. I have discussed with her therapeutic options and we have decided that we will go to the Operating Room tomorrow for a wedge resection and talc pleurodesis. Seen discussion below. Her vital signs shows a T-max of 98.8 with a hear rate that ranges between 84 and 89, in sinus rhythm, respiratory rate 16 to 20 without the use of accessory muscles, 100% saturated on room air, blood pressure is ranging between 128/71 to 137/81. Her intake and output over the past 24 hours has been recorded as 540 in and 800 out for a negativity of 260 ccs. She has put nothing out the chest tube, there is an air leak on suction. OBJECTIVE: LUNGS: After placing her on suction, she has equal breath sounds on either side. Percussion note is full to the diaphragm. There is no subcutaneous emphysema. CARDIAC: Without murmurs, clicks, gallops or rubs. I cannot feel her PMI. S1 and S2 are normal. ABDOMEN: Soft and nontender. Bowel sounds are positive. There is no hepatomegaly. No CVA tenderness. EXTREMITIES: No pretibial edema. No calf tenderness. No differential swelling of the upper extremities. SKIN: Warm, dry and perfused without cyanosis or mottling, including that of nailbeds and knees. NECK: Supple. There is no jugular venous distention. No subcutaneous emphysema. Trachea is midline. HEENT: Mouth shows the mucous membranes to be pink and moist. Lips and commissures without lesions or thrush. Eyes showed the pupils equal and reactive. Extraocular muscles are intact. Sclera are nonicteric. NEUROLOGIC: Cranial nerves II-XII intact with normal gross motion and gross sensation intact. Gait is not tested. PSYCHIATRIC: She is awake, alert and oriented x3 with appropriate mood and affect and conversational. LABORATORY DATA: Her white count today is 9.7 with a hemoglobin and hematocrit of 11.7 and 35.7, unchanged from yesterday. Her platelet count is 289,000 and stable. Differential shows 56% neutrophils, 28% lymphocytes and 9% monocytes. There are no immature forms or toxic granulations. Her electrolytes are normal with a BUN and creatinine of 6 and 0.72, glucose of 81, and a calcium of 8.2. Coagulation studies are still pending. Her chest x-ray shows a small apical pneumothorax. There is no subcutaneous emphysema. No infiltrates. Costophrenic angles are sharp. IMPRESSION: 1. Spontaneous recurrent pneumothorax, right side. 2. Sickle cell trait. 3. Anemia. 4. Sjgren's syndrome. 5. History of traumatic brain injury. 6. Asthma. 7. Hypokalemia, resolved. PLAN AND DISCUSSION: As noted above. I have had an extensive discussion with Ms. Castillo regarding therapeutic options. We do have an option of returning the chest tube to suction and waiting another three or four days to see if the lung will stick to the chest wall. The alternative is to definitely address the problem and do a wedge resection and talc pleurodesis. I do have a sinking feeling that if she waits for the four days it will only recur, if not now, in the near future and she will be back to [facility]. After our discussion, she has elected to undertake definitive surgical correction. I have explained to her the salient risks including mortality, bleeding, infection, and pneumonia. Will place an epidural and use a Burks catheter. She is still complaining of pain. She states that she is allergic to Toradol because she had a rash at the injection site when she got Toradol at an unknown period of time. It does not sound like a true allergy and I am going to try her on 15 mg of Toradol. If that works out, I will be able to use it after surgery and I know she has a very low pain threshold and every modality I can use will help.
[2020-12-23 16:14] VITALS: BP 153/86
--- NOTE | 2020-12-23 16:48 | REP ---
INDICATION: Tachycardia. COMPARISON: 12/23/2020 8:01 a.m. TECHNIQUE: Single portable AP view of the chest was performed. FINDINGS: Right chest tube remains in place. No significant right-sided pneumothorax is seen. Mild right basilar atelectatic changes have improved. There is no acute infiltrate. The remainder of the study is unchanged. IMPRESSION: Right chest tube. No pneumothorax.No acute infiltrate. <Electronically signed by Andre Nichole > 12/23/20 3039
[2020-12-23 17:18] LABS: CPK CREATINE PHOSPHOKINASE 124 U/L (26-192); MB/CK RELATIVE INDEX 0.81 (< OR =4); TROPONIN I < 0.02 NG/ML (< 0.10)
[2020-12-23 20:00] VITALS: BP 144/87
--- NOTE | 2020-12-23 20:59 | ECGEPIP ---
[facility] Test Date: 2020-12-23 Pat Name: JUVENTINO BROWNE Department: Room: [place] [address] Gender: Female Administrative And Program Specialist: JAILENE : 1975 Requested By: MAN BUSTAMANTE Order Number: [id number] Reading MD: Chang Westfall Measurements Intervals [place] Rate: 115 P: 69 UT: 160 QRS: 19 QRSD: 80 T: 46 QT: 322 QTc: 445 Interpretive Statements Sinus tachycardia Nonspecific ST-T wave abnormalities Compared to prior tracing of 12/21/2020, heart rate is faster Electronically Signed on 12-23-2020 20:58:42 EDT by Chang Westfall
[2020-12-23] MEDS: CETIRIZINE (ZyrTEC) 5 MG/5 ML UDC DYE FREE PO SCH (21:21)
[2020-12-24] VITALS: BP 131/71
[2020-12-24] MEDS: PERCOCET 5MG/325MG TAB PO PRN ×4 (00:21→22:05)
[2020-12-24] MEDS: LEVALBUTEROL 1.25 MG/0.5 ML CONCENTRATE NEB NEB SCH ×4 (00:59→19:40)
[2020-12-24 04:00] VITALS: BP 131/71
[2020-12-24 05:28] LABS: BASO # 0.1 10^3/uL (0.0-0.2); BASO % 0.6 % (0.0-1.0); EOS # 0.3 10^3/uL (0.0-0.5); EOS % 3.1 % (0.0-3.0); HEMATOCRIT 37.1 % (36.0-47.0); HEMOGLOBIN 12.3 g/dl (12.0-15.5); LYMPH # 2.3 10^3/uL (1.5-5.0); LYMPH % 24.3 % (24.0-44.0); MEAN CORPUSCULAR HEMOGLOBIN 29.7 pg (27.0-33.0); MEAN CORPUSCULAR HGB CONC 33.2 g/dl (32.0-36.5); MEAN CORPUSCULAR VOLUME 89.6 fl (80.0-96.0); MONO # 0.9 10^3/uL (0.0-0.8); MONO % 8.9 % (2.0-8.0); NEUTROPHILS # 5.9 10^3/uL (1.5-8.5); NEUTROPHILS % 62.5 % (36.0-66.0); PLATELET COUNT, AUTOMATED 300 10^3/uL (150-450); RED BLOOD COUNT 4.14 10^6/uL (4.00-5.40); WHITE BLOOD COUNT 9.5 10^3/uL (4.0-10.0)
[2020-12-24 05:49] LABS: BLOOD UREA NITROGEN 5 MG/DL (7-18); CARBON DIOXIDE LEVEL 30 MEQ/L (21-32); CHLORIDE LEVEL 103 MEQ/L (98-107); CREATININE FOR GFR 0.74 MG/DL (0.55-1.30); GLOMERULAR FILTRATION RATE > 60.0 (>58); GLUCOSE, FASTING 88 MG/DL (70-100); POTASSIUM SERUM 4.1 MEQ/L (3.5-5.1); SODIUM LEVEL 138 MEQ/L (136-145)
[2020-12-24] MEDS ORDERED: ceFAZolin SOD 2 GM in IV 1 EA IV ONE (06:00)
[2020-12-24] MEDS ORDERED: MUPIROCIN 2% OINT 22 GM TUBE TOP ONE (06:00)
[2020-12-24] MEDS: SLF 3 ML SYR IV SCH ×3 (06:29→20:50)
[2020-12-24] MEDS ORDERED: MIDAZOLAM INJ 2MG/2ML VIAL (J2250 PER 1MG) IV PRN (07:01)
[2020-12-24] MEDS ORDERED: fentaNYL 100 MCG/2 ML INJECTION (J3010) IV PRN (07:01)
[2020-12-24] MEDS: SYMBICORT 80/4.5MCG INHALER 6GM INH SCH ×2 (07:18→19:40)
[2020-12-24 07:30] VITALS: BP 169/99
[2020-12-24] MEDS ORDERED: CETACAINE SPRAY 5GM As Ordered ONE (07:41)
[2020-12-24] MEDS ORDERED: STERILE TALC POWDER 3GM VIAL As Ordered ONE (07:41)
[2020-12-24] MEDS ORDERED: TALCAIR POWDER BLOWER (CAN ONLY BE USED WITH 3GM TALC VIAL) XX ONE (07:42)
[2020-12-24] MEDS ORDERED: BUPIVACAINE HCL 0.5% 30 ML VIAL As Ordered ONE (07:42)
[2020-12-24] MEDS ORDERED: MUPIROCIN 2% OINT 22 GM TUBE As Ordered ONE (07:42)
[2020-12-24] MEDS ORDERED: BUPIVACAINE LIPOSOME/PF 1.3% 20ML VIAL (13.3MG/ML)(EXPAREL)(C9290 PER1MG) As Ordered ONE (07:42)
[2020-12-24] MEDS ORDERED: BUPIVACAINE HCL 0.25% 30ML VIAL As Ordered ONE (07:42)
--- NOTE | 2020-12-24 08:59 | IPNPDOC ---
Date Seen The patient was seen on 12/24/20. Progress Note SUBJECTIVE: 45-year-old -English female with a PMHx of Asthma, Sjogren's, Sickle Cell Trait, iron deficiency, reported clotting disorder who presented to the ED with complaints of shortness of breath. Patient was found to have a right-sided pneumothorax and a chest tube was placed on 12/[address] Candelaria (cardiothorax surgery) surgery. Patient reported that she had a clotting disorder (Protein S deficiency) and was on aspirin and Plavix. However, review of the medical record via [facility] revealed the patient has normal protein S levels. Patient does follow with hematology (at [facility]) and rheumatology (at [facility]) as an outpatient. Patient was seen sitting up in bed as she was getting prepped to go down into surgery. She said that she is feeling okay, ready for the surgery and to feel better. Patient is not going to surgery today as her last dose of Plavix was on 12/19/20; plan for surgery on (12/26/2020). OBJECTIVE PHYSICAL EXAMINATION: VITAL SIGNS: Please see below. GENERAL: in no acute distress; sitting up in bed HEENT: head normocephalic atraumatic; moist mucus membranes CARDIOVASCULAR: regular rate and rhythm; no murmurs noted RESPIRATORY: good air entry bilaterally ABDOMINAL: soft, nondistended, normoactive bowel sounds; no tenderness to palpation EXTREMITIES: 2+ pulses in dorsalis pedis bilaterally; no edema noted in lower extremities bilaterally LABORATORY DATA, IMAGING STUDIES, MICROBIOLOGY: Please see below. CXR 12/21: Large right pneumothorax (perhaps 85% in volume). The left lung is clear. CXR 12/21: S/P placement of right-sided chest tube. Re-expansion of the right lung. No significant pneumothorax is noted. Hazy opacity at the right lung base. CXR 12/21: 1. Stable right chest tube. No obvious residual pneumothorax. 2. Lower lobe opacities may be slightly improved. CXR 12/22: No radiographically apparent pneumothorax with right chest tube in place. Note there is trace residual pneumothorax on the chest CT performed directly after this radiograph. CT Chest 12/22: 1. Trace residual right-sided pneumothorax with apical chest tube in place. 2. No pulmonary bulllous/emphysematous disease. 3. Small pericardial effusion. 4. Trace right pleural effusion. CXR 12/23: Current examination now demonstrates a small right apical pneumothorax along with relatively stable right basilar atelectasis and small pleural effusion. CXR 12/23: Right chest tube. No pneumothorax. No acute infiltrate. ASSESSMENT AND PLAN: This is a 45-year-old female presenting with shortness of breath found to have a Right sided pneumothorax s/p chest tube placement. PROBLEMS: Right sided pneumothorax - improved breathing and only has pain w/ movement - s/p chest tube placement per Dr. Candelaria 12/21/20; air leak noted yesterday after turning down suction; not going to surgery today as last dose of Plavix was on 12/19/20 - as per cardiothoracic surgery she will be trialed off suctioning tomorrow and if the chest x-ray on shows that her lung is fully expanded to the chest wall surgery will be canceled (pt's wishes); if she fails the trial, she will receive wedge resection and talc pleurodesis on (12/26/2020) - c/w pain control ?Clotting disorder - Pt has a history of stillbirth in 1995; was told in 2008 by a channel account manager in [place] that she had protein S deficiency; workup done over last 1 year does not reveal any suppressed protein S levels (based on review of chart in [facility]) - Pending current hypercoagulability workup - c/w aspirin; continue holding Plavix - Pt follows with oncology/hematology locally; f/u outpatient after d/c Leukocytosis - likely 2/2 reactive process 2/2 pneumothorax - WBC trending down & hemodynamically stable & afebrile Possible Sjogren's with positive SSA - Seen by Dr. 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 - Chiari I malformation - Seen by Tolu Mack NP ([facility] on 06/18/2020); was advised that they will continue to follow imaging - f/u outpatient at [facility] after d/c Sickle cell trait - Confirmed based on documentation from oncology at [facility] - c/w Ferrous sulfate - f/u outpatient after d/c Chronic Asthma - c/w home inhalers Hypokalemia - after replenishment; this morning is 4.1 Anxiety - c/w Bupropion GERD - c/w Protonix VTE prophylaxis - c/w TEDs and Sequentials DISPOSITION: pending clinical improvement VS, I&O, 24H, Fishbone Vital Signs/I&O Vital Signs Date Time Temp Pulse Resp B/P (MAP) Pulse Ox O2 Delivery O2 Flow Rate FiO2 12/24/20 08:15 97 100 12/24/20 08:11 18 155/92 (113) Nasal Cannula 2.0 12/24/20 07:45 98.4 I&O- Last 24 Hours up to 6 AM 12/24/20 05:59 Intake Total 1110 ml Output Total 1305 ml Balance -195 ml Laboratory Data 24H LABS Laboratory Tests 2 12/23/20 16:31: Lactic Acid Level 1.9, Total Creatine Kinase 124#, Creatine Kinase MB 1.0, Creatine Kinase MB Relative Index 0.81, Troponin I < 0.02 12/24/20 05:12: Immature Granulocyte % (Auto) 0.6, Neutrophils (%) (Auto) 62.5, Lymphocytes (%) (Auto) 24.3, Monocytes (%) (Auto) 8.9H, Eosinophils (%) (Auto) 3.1H, Basophils (%) (Auto) 0.6, Neutrophils # (Auto) 5.9, Lymphocytes # (Auto) 2.3, Monocytes # (Auto) 0.9H, Eosinophils # (Auto) 0.3, Basophils # (Auto) 0.1, Nucleated Red Blood Cells % (auto) 0.0, Anion Gap 5L, Glomerular Filtration Rate > 60.0, Calcium Level 9.0 CBC/BMP Laboratory Tests 12/24/20 05:12 GME ATTESTATION GME ATTESTATION My faculty preceptor for this patient encounter was physically present during the encounter and was fully available. All aspects of the patient interview, examination, medical decision making process, and medical care plan development were reviewed and approved by the faculty preceptor. The faculty preceptor is aware and concurs with the plan as stated in the body of this note and will attest to such by his/her cosignature. ATTENDING NOTE Attending Attestation: I saw and evaluated the patient. I agree with the finding and the plan of care as documented in the residents note. Laurie Mcintosh DO Dec 24, 2020 08:34 JACY GONZALEZ MD Dec 25, 2020 06:15
[2020-12-24] MEDS: MONTELUKAST 10 MG TAB PO SCH (09:44)
[2020-12-24] MEDS: HEPARIN SOD (PORCINE) 5000UNITS/ML 1ML VIAL/SYRINGE SC SCH ×2 (09:44→20:48)
[2020-12-24] MEDS: FERROUS SULFATE 325MG TAB PO SCH (09:44)
[2020-12-24] MEDS: buPROPion **XL** TABLET 150MG (WELLBUTRIN XL) PO SCH (09:44)
[2020-12-24] MEDS: MOM 30ML SUSPENSION UDC PO SCH (09:44)
[2020-12-24] MEDS: FOLIC ACID 1 MG TAB PO SCH (09:44)
[2020-12-24] MEDS: DOCUSATE SODIUM 100MG CAPSULE PO SCH ×2 (09:44→20:47)
[2020-12-24] MEDS: ASPIRIN 81MG ENTERIC TABLET PO SCH (09:44)
[2020-12-24] MEDS: VITAMIN D 1,000 INTERNATIONAL UNITS TABLET PO SCH (09:44)
[2020-12-24] MEDS: PANTOPRAZOLE 40MG TAB (PROTONIX) PO SCH (09:44)
[2020-12-24] MEDS ORDERED: OLOPATADINE 0.1% OPHTH SOL 5ML(PATANOL) OU PRN (10:10)
--- NOTE | 2020-12-24 10:55 | IPN ---
"PROGRESS NOTE DATE: 12/24/2020 SUBJECTIVE: Ms. Castillo's surgery was canceled as she had taken Plavix this past . Anesthesia uncovered this this morning rather than yesterday when she was supposed to have been preop. She is therefore back on the floor and is doing well. There is no air leak. She is scheduled for this for the talc pleurodesis and wedge resection of the distal emphysematous bleb. Her vital signs shows a T-max of 98.4 with a heart rate that ranges between 93 and 105 and is sinus rhythm. Respiratory rate is 18 to 20 without the use of accessory muscles. She is 99 to 100% saturated on 2 liters nasal cannula. Her blood pressure is ranging between 131/71 to 169/99. Her intake and output over the 24 hours has been recorded as 1110 in and 1300 out for a negativity of 190 ml. She has put out nothing from the chest tube and there is no air leak as noted above. Her weight today is 61.3 kilos which is the same as two days ago. OBJECTIVE: Her lungs show equal breath sounds on either side. She has normal vesicular sounds without wheezes, rhonchi or rales. Percussion note is full to the diaphragm. Cardiac exam is murmurs, clicks, gallops or rubs. I cannot feel her PMI. S1 and S2 are normal. Abdomen is soft, nontender. Bowel sounds are positive. There is no hepatomegaly. No CVA tenderness. Extremities show no pretibial edema. No calf tenderness. No differential swelling of the upper extremities. Skin is warm, dry and perfused without cyanosis or mottling including that of nailbeds and knees. Neck is supple. There is no jugular venous distention, no subcutaneous emphysema. Trachea is midline. Mouth shows the mucous membranes to be pink and moist. Lips and commissures without lesions or thrush. Eyes shows pupils equal and reactive. Extraocular motions are intact. Sclera nonicteric. Neurologic: Cranial nerves II-XII intact with normal gross motor and gross sensation intact. Gait is not tested. Psychiatric: She is awake, alert and oriented x3 with appropriate mood and affect and conversational. LABORATORY DATA: Her white count today is 9.5 with a hemoglobin and hematocrit of 12.3 and 37.1, unchanged from yesterday with a platelet count of 300,000 and stable. Differential shows 24% neutrophils, 8% lymphocytes and 3% monocytes. There are no immature forms and no toxic granulations. Her chemistries today shows a sodium of 138 with a potassium of 4.1, BUN and creatinine are 5 and 0.74 with a glucose of 88 and a calcium of 9.0. Her chest x-ray was not done this morning as she was being taken to the OR. IMPRESSION: 1. Spontaneous pneumothorax, right side. 2. Congenital emphysematous blebs. 3. Sickle cell trait. 4. Anemia. 5. Sjgren's syndrome. 6. History of traumatic brain injury. 7. Asthma. PLAN/DISCUSSION: As noted above, as she was canceled this morning, we will have to wait until . The competing strategies were to place her back on suction for a number of days and then take her off and see if the lung would stay up. Since we have that period of time to use now, we will use the concurrent strategies. I will take her off suction on Wednesday and if the chest x-ray on shows that her lung is fully expanded to the chest wall we will cancel her surgery as per the patient. Otherwise, we will proceed with a talc pleurodesis and wedge resection on afternoon. |"
[2020-12-24 12:00] VITALS: BP 170/90
[2020-12-24 16:00] VITALS: BP 145/86
[2020-12-24 20:00] VITALS: BP 154/93
[2020-12-24] MEDS: CETIRIZINE (ZyrTEC) 5 MG/5 ML UDC DYE FREE PO SCH (20:47)
[2020-12-25] VITALS: BP 126/81
[2020-12-25] MEDS: LEVALBUTEROL 1.25 MG/0.5 ML CONCENTRATE NEB NEB SCH ×4 (02:00→19:50)
[2020-12-25] MEDS: PERCOCET 5MG/325MG TAB PO PRN ×5 (03:07→21:31)
[2020-12-25 04:07] VITALS: BP 119/79
[2020-12-25 05:10] LABS: BASO # 0.1 10^3/uL (0.0-0.2); BASO % 0.7 % (0.0-1.0); EOS # 0.4 10^3/uL (0.0-0.5); EOS % 3.7 % (0.0-3.0); HEMATOCRIT 34.4 % (36.0-47.0); HEMOGLOBIN 11.6 g/dl (12.0-15.5); LYMPH # 2.8 10^3/uL (1.5-5.0); LYMPH % 25.4 % (24.0-44.0); MEAN CORPUSCULAR HEMOGLOBIN 29.7 pg (27.0-33.0); MEAN CORPUSCULAR HGB CONC 33.7 g/dl (32.0-36.5); MEAN CORPUSCULAR VOLUME 88.2 fl (80.0-96.0); MONO # 0.8 10^3/uL (0.0-0.8); MONO % 7.7 % (2.0-8.0); NEUTROPHILS # 6.8 10^3/uL (1.5-8.5); PLATELET COUNT, AUTOMATED 295 10^3/uL (150-450); WHITE BLOOD COUNT 10.9 10^3/uL (4.0-10.0)
[2020-12-25 05:38] LABS: BLOOD UREA NITROGEN 6 MG/DL (7-18); CALCIUM LEVEL 8.6 MG/DL (8.5-10.1); CARBON DIOXIDE LEVEL 28 MEQ/L (21-32); CHLORIDE LEVEL 106 MEQ/L (98-107); CREATININE FOR GFR 0.75 MG/DL (0.55-1.30); GLOMERULAR FILTRATION RATE > 60.0 (>58); GLUCOSE, FASTING 89 MG/DL (70-100); SODIUM LEVEL 139 MEQ/L (136-145)
[2020-12-25] MEDS: SLF 3 ML SYR IV SCH ×3 (07:14→21:34)
[2020-12-25] MEDS: SYMBICORT 80/4.5MCG INHALER 6GM INH SCH ×2 (08:13→19:50)
--- NOTE | 2020-12-25 09:19 | REP ---
INDICATION: after chtest tube placement. COMPARISON: Comparison chest x-ray December 23, 2020. TECHNIQUE: Two views.. FINDINGS: A right-sided pleural drainage catheter is seen in place at the apex of the right lung. A tiny sliver of apical pleural air is felt to be present at the right apex. No significant pneumothorax is seen. There is minimal platelike atelectasis in the right base. Lung coronel are otherwise clear. Cardiomediastinal silhouette is unremarkable. EKG electrodes are seen. A levoconvex lumbar scoliotic curve is noted with a gentle dextroconvex thoracic curve. IMPRESSION: Right chest tube remains in place. No significant pneumothorax. Platelike atelectasis right base. Thoracolumbar scoliotic curve. <Electronically signed by Olman Locke > 12/25/20 [id number]
--- NOTE | 2020-12-25 09:32 | IPNPDOC ---
Date Seen The patient was seen on 12/25/20. Progress Note SUBJECTIVE: 45-year-old -Scottish female with a PMHx of Asthma, Sjogren's, Sickle Cell Trait, iron deficiency, reported clotting disorder who presented to the ED with complaints of shortness of breath. Patient was found to have a right-sided pneumothorax and a chest tube was placed on 12/[address] Candelaria (cardiothorax surgery) surgery. Patient reported that she had a clotting disorder (Protein S deficiency) and was on aspirin and Plavix. However, review of the medical record via [facility] revealed the patient has normal protein S levels. Patient does follow with hematology (at [facility]) and rheumatology (at [facility]) as an outpatient. Patient was seen sitting up in bed reading books. She said that she is feeling good this morning and is anxious to get out of the hospital. Patient was agreeable to the plan of being trialed off suctioning today; if the x-ray on shows her lung is fully expanded the surgery will be canceled. If she fails the trial, patient will receive a wedge resection and talc pleurodesis on (12/26/2020). OBJECTIVE PHYSICAL EXAMINATION: VITAL SIGNS: Please see below. GENERAL: In no acute distress; sitting up in bed reading books HEENT: Head normocephalic atraumatic; moist mucous membranes CARDIOVASCULAR: Regular rate and rhythm; no murmurs noted RESPIRATORY: Good air entry bilaterally; chest tube on right chest; no air leaks noted ABDOMINAL: Soft, nondistended, NABS; no tenderness to palpation EXTREMITIES: 2+ pulses dorsalis pedis bilaterally; no edema in lower extremities bilaterally LABORATORY DATA, IMAGING STUDIES, MICROBIOLOGY: Please see below. CXR 12/21: "Large right pneumothorax (perhaps 85% in volume). The left lung is clear." CXR 12/21: "S/P placement of right-sided chest tube. Re-expansion of the right lung. No significant pneumothorax is noted. Hazy opacity at the right lung base." CXR 12/21: "1. Stable right chest tube. No obvious residual pneumothorax. 2. Lower lobe opacities may be slightly improved." CXR 12/22: "No radiographically apparent pneumothorax with right chest tube in place. Note there is trace residual pneumothorax on the chest CT performed directly after this radiograph." CT Chest 12/22: "1. Trace residual right-sided pneumothorax with apical chest tube in place. 2. No pulmonary bulllous/emphysematous disease. 3. Small pericardial effusion. 4. Trace right pleural effusion." CXR 12/23: "Current examination now demonstrates a small right apical pne umothorax along with relatively stable right basilar atelectasis and small pleural effusion." CXR 12/23: "Right chest tube. No pneumothorax. No acute infiltrate." CXR 12/25: "Right chest tube remains in place. No significant pneumothorax. Platelike atelectasis right base. Thoracolumbar scoliotic curve." DVT prophylaxis ordered?: Yes; TEDs and Sequentials ASSESSMENT AND PLAN: This is a 45-year-old -[place]ish female presenting with shortness of breath found to have a right-sided pneumothorax s/p chest tube placement. PROBLEMS: Right sided pneumothorax - improved breathing and only has pain w/ movement - s/p chest tube placement per Dr. Candelaria 12/21/20; air leak noted 12/23 after tu rning down suction - c/w holding Plavix (day#6) - as per cardiothoracic surgery she will be trialed off suctioning today and if CXR on shows that her lung is fully expanded to the chest wall surgery will be canceled (pt's wishes); if she fails the trial, she will receive wedge resection and talc pleurodesis on (12/26/2020) - c/w pain control ?Clotting disorder - Pt has a history of stillbirth in 1995; was told in 2008 by a pediatric oncology nurse in [place] that she had protein S deficiency; workup done over last 1 year does not reveal any suppressed protein S levels (based on review of chart in [facility]) - Pending current hypercoagulability workup - c/w aspirin - c/w holding Plavix (day#6) - Pt follows with oncology/hematology locally; f/u outpatient after d/c Leukocytosis - likely 2/2 reactive process 2/2 pneumothorax - WBC trending down & hemodynamically stable & afebrile Possible Sjogren's with positive SSA - Seen by Dr. 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 - Chiari I malformation - Seen by Tolu Mack NP ([facility] on 06/18/2020); was advised that they will continue to follow imaging - f/u outpatient at [facility] after d/c Sickle cell trait - Confirmed based on documentation from oncology at [facility] - c/w Ferrous sulfate - f/u outpatient after d/c Chronic Asthma - c/w home inhalers Hypokalemia - after replenishment; this morning is 4.0 Anxiety - c/w Bupropion GERD - c/w Protonix VTE prophylaxis - c/w TEDs and Sequentials DISPOSITION: pending clinical improvement VS, I&O, 24H, Fishbone Vital Signs/I&O Vital Signs Date Time Temp Pulse Resp B/P (MAP) Pulse Ox O2 Delivery O2 Flow Rate FiO2 12/25/20 04:07 98.5 83 16 119/79 (92) 100 Room Air 12/24/20 08:11 2.0 I&O- Last 24 Hours up to 6 AM 12/25/20 06:00 Intake Total 940 ml Output Total 1110 ml Balance -170 ml Laboratory Data 24H LABS Laboratory Tests 2 12/25/20 04:58: Immature Granulocyte % (Auto) 0.5, Neutrophils (%) (Auto) 62.0, Lymphocytes (%) (Auto) 25.4, Monocytes (%) (Auto) 7.7, Eosinophils (%) (Auto) 3.7H, Basophils (%) (Auto) 0.7, Neutrophils # (Auto) 6.8, Lymphocytes # (Auto) 2.8, Monocytes # (Auto) 0.8, Eosinophils # (Auto) 0.4, Basophils # (Auto) 0.1, Nucleated Red Blood Cells % (auto) 0.0, Anion Gap 5L, Glomerular Filtration Rate > 60.0, Calcium Level 8.6 CBC/BMP Laboratory Tests 12/25/20 04:58 GME ATTESTATION GME ATTESTATION My faculty preceptor for this patient encounter was physically present during the encounter and was fully available. All aspects of the patient interview, examination, medical decision making process, and medical care plan development were reviewed and approved by the faculty preceptor. The faculty preceptor is aware and concurs with the plan as stated in the body of this note and will attest to such by his/her cosignature. ATTENDING NOTE Attending Attestation: I saw and evaluated the patient. I agree with the finding and the plan of care as documented in the residents note. Laurie Mcintosh DO Dec 25, 2020 08:36 JACY GONZALEZ MD Dec 26, 2020 06:32
[2020-12-25] MEDS: MOM 30ML SUSPENSION UDC PO SCH (09:47)
[2020-12-25] MEDS: ASPIRIN 81MG ENTERIC TABLET PO SCH (09:47)
[2020-12-25] MEDS: MONTELUKAST 10 MG TAB PO SCH (09:48)
[2020-12-25] MEDS: DOCUSATE SODIUM 100MG CAPSULE PO SCH ×2 (09:48→21:25)
[2020-12-25] MEDS: FOLIC ACID 1 MG TAB PO SCH (09:48)
[2020-12-25] MEDS: PANTOPRAZOLE 40MG TAB (PROTONIX) PO SCH (09:48)
[2020-12-25] MEDS: buPROPion **XL** TABLET 150MG (WELLBUTRIN XL) PO SCH (09:48)
[2020-12-25] MEDS: VITAMIN D 1,000 INTERNATIONAL UNITS TABLET PO SCH (09:48)
[2020-12-25] MEDS: HEPARIN SOD (PORCINE) 5000UNITS/ML 1ML VIAL/SYRINGE SC SCH ×2 (09:48→21:25)
[2020-12-25] MEDS: FERROUS SULFATE 325MG TAB PO SCH (09:48)
[2020-12-25 12:36] VITALS: BP 119/74
[2020-12-25 16:00] VITALS: BP 131/92
[2020-12-25 20:00] VITALS: BP 130/79
[2020-12-25] MEDS: CETIRIZINE (ZyrTEC) 5 MG/5 ML UDC DYE FREE PO SCH (21:26)
[2020-12-26] VITALS: BP 137/86
[2020-12-26] MEDS: NORCO, ANEXSIA 5/325MG TABLET (HYDROcodone/ACETAMINOPHEN) PO PRN (00:22)
[2020-12-26] MEDS: LEVALBUTEROL 1.25 MG/0.5 ML CONCENTRATE NEB NEB SCH ×3 (01:09→13:51)
[2020-12-26] MEDS: PERCOCET 5MG/325MG TAB PO PRN ×2 (03:04→06:03)
[2020-12-26 04:00] VITALS: BP 139/87
[2020-12-26 05:32] LABS: BASO # 0.1 10^3/uL (0.0-0.2); BASO % 0.6 % (0.0-1.0); EOS # 0.4 10^3/uL (0.0-0.5); EOS % 3.5 % (0.0-3.0); HEMATOCRIT 36.4 % (36.0-47.0); HEMOGLOBIN 12.2 g/dl (12.0-15.5); LYMPH # 2.6 10^3/uL (1.5-5.0); LYMPH % 21.2 % (24.0-44.0); MEAN CORPUSCULAR HEMOGLOBIN 29.9 pg (27.0-33.0); MEAN CORPUSCULAR HGB CONC 33.5 g/dl (32.0-36.5); MEAN CORPUSCULAR VOLUME 89.2 fl (80.0-96.0); MONO # 0.9 10^3/uL (0.0-0.8); MONO % 7.1 % (2.0-8.0); NEUTROPHILS # 8.3 10^3/uL (1.5-8.5); PLATELET COUNT, AUTOMATED 291 10^3/uL (150-450); RED BLOOD COUNT 4.08 10^6/uL (4.00-5.40); WHITE BLOOD COUNT 12.4 10^3/uL (4.0-10.0)
[2020-12-26] MEDS: SLF 3 ML SYR IV SCH ×2 (05:41→14:00)
[2020-12-26 06:01] LABS: BLOOD UREA NITROGEN 9 MG/DL (7-18); CALCIUM LEVEL 8.7 MG/DL (8.5-10.1); CARBON DIOXIDE LEVEL 26 MEQ/L (21-32); CHLORIDE LEVEL 105 MEQ/L (98-107); CREATININE FOR GFR 0.72 MG/DL (0.55-1.30); GLOMERULAR FILTRATION RATE > 60.0 (>58); GLUCOSE, FASTING 97 MG/DL (70-100); POTASSIUM SERUM 3.7 MEQ/L (3.5-5.1); SODIUM LEVEL 134 MEQ/L (136-145)
--- NOTE | 2020-12-26 06:27 | IPN ---
PROGRESS NOTE DATE: 12/25/2020 SUBJECTIVE: Ms. Castillo is fairly comfortable. I initially booked her for the operating room for tomorrow, , as that would be a full seven days from her last Plavix dose. However, the OR has informed me that they have no staffing, even upon insisting to find staffing to accommodate this patient so she does not have to stay an extra day they are recalcitrant and obstinate in regard to finding me a room. She is therefore scheduled for Wednesday. Her vital signs shows a T-max of 99.0 with a heart rate that ranges between 76 and 98 and is sinus rhythm, respiratory rate is 15 to 18 without the use of accessory muscles, who is 93 to 100% saturated on room air. Blood pressure is ranging between 119/74 to 131/92. Her intake and output over the past 24 hours has been recorded as 940 in and 1105 out for a negativity of 165 ml. She has put out 5 ml out the chest tube and there is no air leak. Her weight today is 57.5 kilos compared to 61.3 kilos yesterday. OBJECTIVE: Her lungs reveal equal breath sounds on either side without wheezes, rhonchi or rales. Percussion notes are full to the diaphragm. Cardiac exam is without murmurs, clicks, gallops or rubs. I cannot feel her PMI. S1 and S2 are normal. Abdomen is soft, nontender. Bowel sounds are positive. There is no hepatomegaly. No CVA tenderness. Extremities show no pretibial edema, no calf tenderness. No differential swelling of the upper extremities. Skin is warm, dry and perfused without cyanosis or mottling including that of nailbeds and knees. Neck is supple. There is no jugular venous distention. No subcutaneous emphysema. Trachea is midline. Mouth shows the mucous membranes to be pink and moist. Lips and commissures with no lesions or thrush. Eyes shows the pupils equal and reactive. Extraocular motions intact. Sclera nonicteric. Neurologic: Cranial nerves II-XII. Normal gross motor and gross sensation intact. Gait is not tested. Psychiatric shows her to be alert and oriented x3 with appropriate mood and affect and conversational. LABORATORY DATA: Her white count today is 10.9 with a hemoglobin and hematocrit of 11.6 and 34.4 respectively. Platelet count is 295,000. Differential shows 62% neutrophils, 25% lymphocytes and 7% monocytes. There are no immature forms or toxic granulations. Chemistries today show normal electrolytes with a BUN and creatinine of 6 and 0.75 with a glucose of 89 and a calcium of 8.6. Her chest x-ray shows the lung fully expanded to the chest wall. There are no infiltrates. Costophrenic angle is sharp. IMPRESSION: 1. Spontaneous pneumonia, right side. 2. Congenital emphysematous blebs. 3. Sickle cell trait. 4. Anemia. 5. Sjgren's syndrome. 6. History of traumatic brain injury. 7. Asthma. PLAN AND DISCUSSION: As noted above, I am not able to operate on her tomorrow and will have to wait until Wednesday. We have again discussed our strategy. She is no longer leaking and we can try taking her off suction to see if her lung will stay up this time. If it does, she can make a decision as to whether she wishes to have the chest tube removed and risk a recurrence in the future or undertake a definitive procedure on Wednesday. She will come to that decision prior to making that decision to remove the chest tube. If she is leaking or if the lung does fall that makes the decision very clear and easy for her as she would need a definitive surgical correction. Right now she is on the fence as to which way she wants to go which is not at all unreasonable. HORACIO
[2020-12-26] MEDS: SYMBICORT 80/4.5MCG INHALER 6GM INH SCH (07:24)
--- NOTE | 2020-12-26 07:55 | REP ---
INDICATION: after chtest tube placement. COMPARISON: Comparison radiograph December 25, 2020. TECHNIQUE: Two views.. FINDINGS: Right apical chest tube remains in place. There is no evidence of significant pneumothorax or hydrothorax. Lungs are well inflated and free of infiltrate. Minimal linear platelike atelectasis is seen in the right base unchanged. Heart is not enlarged. Left lung is clear. There is a levoconvex curvature in the lumbar spine. IMPRESSION: Right chest tube remains in place. No significant change from the previous day's study <Electronically signed by Olman Locke > 12/26/20 [id number]
[2020-12-26 08:00] VITALS: BP 142/89
[2020-12-26] MEDS: MONTELUKAST 10 MG TAB PO SCH (09:50)
[2020-12-26] MEDS: FERROUS SULFATE 325MG TAB PO SCH (09:50)
[2020-12-26] MEDS: VITAMIN D 1,000 INTERNATIONAL UNITS TABLET PO SCH (09:50)
[2020-12-26] MEDS: FOLIC ACID 1 MG TAB PO SCH (09:50)
[2020-12-26] MEDS: ASPIRIN 81MG ENTERIC TABLET PO SCH (09:50)
[2020-12-26] MEDS: MOM 30ML SUSPENSION UDC PO SCH (09:51)
[2020-12-26] MEDS: ACETAMINOPHEN TAB 650MG DOSE (2X325MG) PO PRN ×2 (09:51→15:12)
[2020-12-26] MEDS: buPROPion **XL** TABLET 150MG (WELLBUTRIN XL) PO SCH (09:51)
[2020-12-26] MEDS: PANTOPRAZOLE 40MG TAB (PROTONIX) PO SCH (09:51)
[2020-12-26] MEDS: HEPARIN SOD (PORCINE) 5000UNITS/ML 1ML VIAL/SYRINGE SC SCH (09:51)
[2020-12-26] MEDS: DOCUSATE SODIUM 100MG CAPSULE PO SCH (09:51)
--- NOTE | 2020-12-26 11:44 | IPN ---
PROGRESS NOTE DATE: 12/26/2020 SUBJECTIVE: Ms. Castillo is doing well today. There is no air leak and her lung is fully expanding to the chest wall on the chest x-ray. We have had a very long discussion with regard to treatment options and she wishes to have the chest tube removed and go home. She is a little tired of waiting to go to the Operating Room. It is rational decision for which I can find no compelling argument and I will therefore discharge her. Her vital signs shows a T-max of 98.7 with a heart rate that ranges between 80 and 90 and is in sinus rhythm, respiratory rate is 16 to 18 without the use of accessory muscles, who is 99 to 100% on 2 liters nasal cannula. Her blood pressure is 130/79 to 142/89. Her intake and output over the past 24 hours has been recorded as 1260 in and 1400 out for a positive of 850 ml. She has put out 10 ml from the chest tube and there is no air leak. OBJECTIVE: Her lungs show normal vesicular sounds on either side. Percussion notes are full to the diaphragm. There are no wheezes, rhonchi or rales. Cardiac exam is without murmurs, clicks, gallops or rubs. I cannot feel her PMI. S1 and S2 are normal. Abdomen is soft, nontender. Bowel sounds are positive. There is no hepatomegaly. No CVA tenderness. Extremities show no pretibial edema, no calf tenderness. No differential swelling of the upper extremities. Skin is warm, dry and perfused without cyanosis or mottling including that of nailbeds and knees. Neck is supple. There is no jugular venous distention. No subcutaneous emphysema. Trachea is midline. Mouth shows the mucous membranes to be pink and moist. Lips and commissures with no lesions or thrush. Eyes shows the pupils equal and reactive. Extraocular motions intact. Sclera nonicteric. Neurologic: Cranial nerves II-XII. Normal gross motor and gross sensation intact. Gait is not tested. Psychiatric shows her to be alert and oriented x3 with appropriate mood and affect and conversational. LABORATORY DATA: Her white count today is 12.4 with a hemoglobin and hematocrit of 12.2 and 36.4 respectively. Platelet count is 291,000 and stable. Differential shows 67% neutrophils, 21% lymphocytes, 7 monocytes. There are no immature forms or toxic granulations. Her electrolytes are essentially normal with a marginally low sodium of 134. BUN and creatinine are 9 and 0.72. Glucose is 97 and a calcium is 8.7. As noted above, her chest x-ray shows her lung fully expanded to the chest wall without infiltrates and sharp costophrenic angles. There is no subcutaneous emphysema. IMPRESSION: 1. Spontaneous pneumothorax, right side. 2. Congenital emphysematous blebs. 3. Sickle cell trait. 4. Anemia. 5. Sjgren's syndrome. 6. History of traumatic brain injury. 7. Asthma. PLAN AND DISCUSSION: I will remove her chest tube and take a chest x-ray in six hours. If the lung remains expanded to the chest wall we will discharge her today. She will follow-up with me in 10 days in the office with a chest x-ray. I have counseled her about heavy lifting and strenuous activity. She is asking about sending her home on Percocet and I have indicated to her that we will see what happens over the next six hours before her chest x-ray to see if she really needs it once the chest tube is out. If she does, I will send her home on Percocet, otherwise on NSAIDs supplemented by Tylenol. I also told her to continue to discontinue the Plavix. Her final coagulation studies are pending but her "protein S deficiency" has been confused with her sickle cell trait.
[2020-12-26 12:00] VITALS: BP 135/75
--- NOTE | 2020-12-26 14:21 | REP ---
INDICATION: pneumothorax. COMPARISON: Comparison chest x-ray December 26, 2020 at 7:23 a.m.. TECHNIQUE: Two views.. FINDINGS: In the interval since this morning's chest x-ray, the right chest tube is been removed. There is a tiny sliver of apical pleural air at the right apex on today's chest x-ray. Pleural angles are sharp. Lung coronel are clear. Cardiomediastinal silhouette is unremarkable. EKG electrodes are present. IMPRESSION: Right chest tube removed. Tiny sliver of apical pleural air on the right. Otherwise no acute disease. <Electronically signed by Olman Locke > 12/26/20 2500
--- NOTE | 2020-12-26 16:31 | DS.PDOC ---
Discharge Summary General Date of Admission Dec 21, 2020 at 04:01 Date of Discharge December 26, 2020 Discharge Summary PROCEDURES PERFORMED DURING STAY: Chest tube placement 12/21/2020 and Chest tube removal 12/26/2020 ADMITTING DIAGNOSES: 1. Spontaneous Right pneumothorax 2. Possible Sjogren's with positive SSA 3. 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 Sickle Cell Trait 5. Chronic Asthma 6. Anxiety DISCHARGE DIAGNOSES: 1. Possible Sjogren's with positive SSA 2. 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 Sickle Cell Trait 4. Chronic Asthma 5. Anxiety COMPLICATIONS/CHIEF COMPLAINT: Right sided chest pain and shortness of breath HISTORY OF PRESENT ILLNESS: 45-year-old -[place] female with a PMHx of Asthma, Sjogren's, Sickle Cell Trait, iron deficiency, reported clotting disorder who presented to the ED with complaints of right sided chest pain and shortness of breath. Patient was found to have a right-sided pneumothorax and a chest tube was placed on 12/[address] Candelaria (cardiothoracic surgery) surgery. HOSPITAL COURSE: 45 year old female presented to the ED with shortness of breath was found to have a large right sided pneumothorax on chest x-ray. Cardiothoracic surgeon Dr. Candelaria was contacted as he initially admitted the patient and placed the right-sided chest tube on 12/21. Hospitalist service was contacted to assume medical management of the patient. After placement of chest tube, she stated that she feels a lot better as well as her breathing has improved. On 12/23, Dr. Candelaria attempted to turn down suctioning and an air leak was noted on 12/23. She was placed back on suctioning and her right lung expanded to the chest wall. After patient discussed her treatment options with Dr. Candelaria on 12/26, she wished to have her chest tube removed. Chest tube was then removed and repeat chest x-ray showed a tiny sliver of apical pleural air on the right. Patient has been instructed to follow up with Dr. Candelaria for chest x-ray in the next 10 days as well as discontinuing her Plavix. At time of admission patient reported that she had a clotting disorder (Protein S deficiency) and was on aspirin and Plavix. She also reported that she has Sjogren's syndrome. In review of medical records through [facility], it was revealed that she saw assurance specialist/oncologist at [facility] who did a workup on 02/05/2020 which did not reveal any suppressed protein S levels. It is very unlikely that patient has protein S deficiency and thus should not be taking Plavix. For her Sjogren's syndrome, she saw rheumatology at [facility] who did a workup in 04/01/2020 which showed positive JENNI and SSA antibodies. At that time she did not meet the criteria for SLE and had symptoms suggestive of Sjogren's syndrome. In regards to her TBI x 3 from deployment and Chiari I malformation, patient follows up with [facility] and on 06/18/2020, she was advised that they will continue to follow imaging. DISCHARGE MEDICATIONS: Please see below. ALLERGIES: Please see below. PHYSICAL EXAMINATION ON DISCHARGE: VITAL SIGNS: Please see below. GENERAL: In no acute distress; sitting comfortably in bed HEENT: Head normocephalic atraumatic; moist mucous membranes CARDIOVASCULAR EXAMINATION: Regular rate and rhythm; no murmurs noted RESPIRATORY EXAMINATION: Good air entry bilaterally; no wheezing, rales or rho nchi ABDOMINAL EXAMINATION: Soft, nondistended, normoactive bowel sounds; no tenderness to palpation EXTREMITIES: 2+ pulses dorsalis pedis bilaterally; no edema in lower extremities bilaterally LABORATORY DATA: Please see below. IMAGING: CXR 12/21: "Large right pneumothorax (perhaps 85% in volume). The left lung is clear." CXR 12/21: "S/P placement of right-sided chest tube. Re-expansion of the right lung. No significant pneumothorax is noted. Hazy opacity at the right lung base." CXR 12/21: "1. Stable right chest tube. No obvious residual pneumothorax. 2. Lower lobe opacities may be slightly improved." CXR 12/22: "No radiographically apparent pneumothorax with right chest tube in place. Note there is trace residual pneumothorax on the chest CT performed directly after this radiograph." CT Chest 12/22: "1. Trace residual right-sided pneumothorax with apical chest tube in place. 2. No pulmonary bulllous/emphysematous disease. 3. Small pericardial effusion. 4. Trace right pleural effusion." CXR 12/23: "Current examination now demonstrates a small right apical pneumothorax along with relatively stable right basilar atelectasis and small pleural effusion." CXR 12/23: "Right chest tube. No pneumothorax. No acute infiltrate." CXR 12/25: "Right chest tube remains in place. No significant pneumothorax. Platelike atelectasis right base. Thoracolumbar scoliotic curve." CXR 12/26: "Right chest tube remains in place. No significant change from the previous day's study." CXR 12/26: "Right chest tube removed. Tiny sliver of apical pleural air on the right. Otherwise no acute disease." PROGNOSIS: Good ACTIVITY: As tolerated DIET: As tolerated DISCHARGE INSTRUCTIONS: 1. Please follow up with Dr. Candelaria outpatient in 10 days for a chest x-ray. 2. Please remove dressing in the morning; if wound weeps, cover with light dressing to protect clothes 3. No heavy lifting or strenuous activity for 6 weeks. 4. Please discontinue Plavix. 5. Please follow up with your PCP in the next 2 weeks. 6. If you develop any shortness or breath or worsening of symptoms, please return to the ED for further evaluation. DISCHARGE CONDITION: Stable TIME SPENT ON DISCHARGE: 33 minutes. Vital Signs/I&Os Vital Signs Date Time Temp Pulse Resp B/P (MAP) Pulse Ox O2 Delivery O2 Flow Rate FiO2 12/26/20 08:00 98.5 86 16 142/89 (106) 100 12/26/20 07:00 Room Air 12/26/20 03:04 2.0 I&O- Last 24 Hours up to 6 AM 12/26/20 06:00 Intake Total 1260 ml Output Total 400 ml Balance 860 ml Laboratory Data Labs 24H Laboratory Tests 2 12/26/20 05:14: Immature Granulocyte % (Auto) 0.6, Neutrophils (%) (Auto) 67.0H, Lymphocytes (%) (Auto) 21.2L, Monocytes (%) (Auto) 7.1, Eosinophils (%) (Auto) 3.5H, Basophils (%) (Auto) 0.6, Neutrophils # (Auto) 8.3, Lymphocytes # (Auto) 2.6, Monocytes # (Auto) 0.9H, Eosinophils # (Auto) 0.4, Basophils # (Auto) 0.1, Nucleated Red Blood Cells % (auto) 0.0, Anion Gap 3L, Glomerular Filtration Rate > 60.0, Calcium Level 8.7 CBC/BMP Laboratory Tests 12/26/20 05:14 Discharge Medications Scheduled Aspirin (Ecotrin) 81 Mg Tablet.dr, 81 MG PO DAILY, (Reported) Budesonide/Formoterol (Symbicort 80-4.5 Mcg Inhaler) 6.9 Gm Hfa.aer.ad, 2 PUFF INH BID, (Reported) Bupropion HCl (Bupropion Xl) 300 Mg Tab.er.24h, 300 MG PO DAILY, (Reported) Cetirizine HCl (Cetirizine HCl) 10 Mg Tab.chew, 10 MG PO QPM, (Reported) Cholecalciferol (Vitamin D3) (Vitamin D3) 1,000 Unit Tablet, 1,000 UNITS PO DAILY, (Reported) Ferrous Sulfate (Ferrous Sulfate) 325 Mg Tablet.dr, 1 TAB PO DAILY Folic Acid (Folic Acid) 1 Mg Tablet, 1 TAB PO DAILY Montelukast Sodium (Singulair) 10 Mg Tablet, 10 MG PO DAILY, (Reported) Naphazoline/Hpm/Ps80/Zinc Sulf (Clear Eyes Complete Eye Drops) 15 Ml Drops, 1 DROP OU DAILY, (Reported) Olopatadine HCl (Olopatadine HCl) 0.1% 5ML Drops, 1 DROP OU BID, (Reported) Pnv,Calcium 72/Iron/Folic Acid (Preplus Ca-Fe 27 mg-FA 1 mg Tb) 1 Each Tablet, 1 TAB PO DAILY, (Reported) Allergies Coded Allergies: ketorolac (Verified Adverse Reaction, Intermediate, RASH AT INJECTION SITE PER , 12/23/20) GME ATTESTATION GME ATTESTATION My faculty preceptor for this patient encounter was physically present during the encounter and was fully available. All aspects of the patient interview, examination, medical decision making process, and medical care plan development were reviewed and approved by the faculty preceptor. The faculty preceptor is aware and concurs with the plan as stated in the body of this note and will attest to such by his/her cosignature. ATTENDING NOTE Attending Attestation: I saw and evaluated the patient. I agree with the finding and the plan of care as documented in the residents note. Laurie Mcintosh DO Dec 26, 2020 13:07 JACY GONZALEZ MD Dec 27, 2020 08:29
[2020-12-26 18:12] LABS: ANTI DOUBLE STRAND-DNA AB 1 IU/mL (0-9); ANTI THROMBIN 3 ANTIGEN IMMUNO 86 % (72-124); ANTI THROMBIN 3 FUNCT ACTIVITY 127 % (75-135); ANTINUCLEAR ANTIBODIES DIRECT Positive (Negative); CARDIOLIPIN IGA ANTIBODY <9 APL U/mL (0-11); CARDIOLIPIN IGG ANTIBODY <9 GPL U/mL (0-14); CARDIOLIPIN IGM ANTIBODY 11 MPL U/mL (0-12); HOMOCYST(E)INE SERUM 6.7 umol/L (0.0-14.5); PROTEIN C ANTIGEN 107 % (60-150); PROTEIN S ANTIGEN FREE 52 % (57-157); PROTEIN S ANTIGEN TOTAL 78 % (60-150); RNP ANTIBODIES <0.2 AI (0.0-0.9); SJOGREN'S ANTI SS-A 4.5 AI (0.0-0.9); SJOGREN'S ANTI SS-B <0.2 AI (0.0-0.9); SMITH ANTIBODIES <0.2 AI (0.0-0.9)
[2020-12-27] MEDS ORDERED: ROCURONIUM BROMIDE 50 MG/5 ML VIAL As Ordered ONE (08:58)
[2020-12-27] MEDS ORDERED: LIDOCAINE 2% 100MG/5ML SDV (FOR ANES.) As Ordered ONE (08:58)
[2020-12-27] MEDS ORDERED: fentaNYL 250 MCG/5 ML INJECTION (J3010) As Ordered ONE (08:58)
[2020-12-27] MEDS ORDERED: propofoL 200 MG/20 ML VIAL As Ordered ONE (08:58)
[2020-12-27] MEDS ORDERED: MIDAZOLAM INJ 2MG/2ML VIAL (J2250 PER 1MG) As Ordered ONE (08:59)
[2020-12-27 12:07] LABS: DRVV SCREEN 38.2 SEC
== END 2020-12-26 17:18 | disposition home or self-care (01) | DRG 201 ==
LOC: M ED 02:47 → M ED INP 04:01 → M PCU 04:24
PROVIDERS: ADMIT Thoracic Surgery (Cardiothoracic Vascular Surgery); ATTEND Internal Medicine
PROC: 0W9930Z Drainage of Right Pleural Cavity with Drainage Device, Percutaneous Approach (ICD-10-PCS; principal; 2020-12-21)
DX: J93.11 Primary spontaneous pneumothorax (principal); J45.909 Unspecified asthma, uncomplicated; M35.00 Sjogren syndrome, unspecified; Z87.820 Personal history of traumatic brain injury; F41.9 Anxiety disorder, unspecified; Z91.82 Personal history of military deployment; Z20.822 Contact with and (suspected) exposure to COVID-19; D57.3 Sickle-cell trait; Z79.82 Long term (current) use of aspirin; Z79.899 Other long term (current) drug therapy; Z79.02 Long term (current) use of antithrombotics/antiplatelets; Z88.8 Allergy status to other drugs, medicaments and biological substances

== ENCOUNTER → 2021-01-02 | Outpatient (CLI) | payer OTHER ==
[~2021-01-02] MED LIST changes: +BUPR300T92 PO; +ECOT81TA5 PO; +HYDR-643 PO; +HYDR200T3 PO; +PLAV1TAB2 PO; +SYMB80INH INH; +TOPI50TA9 PO; +TRAZ-257 PO
--- NOTE | 2021-01-02 14:11 | REP ---
INDICATION: PNEUMOTHORAX, UNSPECIFIED. COMPARISON: Comparison chest x-ray December 26, 2020. TECHNIQUE: Two views.. FINDINGS: The lungs are symmetrically aerated and clear. No pneumothorax is visible. No infiltrate is seen. Pleural angles are sharp. Heart is not enlarged. The pulmonary vasculature is not increased. There is a levoconvex scoliotic curve in the upper lumbar spine and a gentle dextroconvex thoracic curvature is seen. IMPRESSION: No active disease. No pneumothorax noted. <Electronically signed by Olman Locke > 01/02/21 [id number]
== END ==
LOC: M PLAIMG 12:39
PROVIDERS: ATTEND Thoracic Surgery (Cardiothoracic Vascular Surgery)
DX: J93.9 Pneumothorax, unspecified (principal); J45.30 Mild persistent asthma, uncomplicated

== ENCOUNTER → 2021-01-13 | Outpatient (CLI) | payer OTHER ==
--- NOTE | 2021-01-29 13:29 | REPMRS ---
Patient History The patient states she had a clinical breast exam in 04/14. Family history of breast cancer at age 40 in paternal aunt. Benign mammogram-guided core biopsy of the right breast, April 26, 1996. No Hormone Replacement Therapy Patient states no breast complaints today. Patient has signed MRS History Sheet. Digital Woman Screen Mammo: January 13, 2021 - Exam #: [id number] Bilateral CC and MLO view(s) were taken. Technologist: Dennise Hodge, [employer] Prior study comparison: December 20, 2019, bilateral diagnostic 3D/tomosynthesis, performed at [facility]. May 12, 2018, bilateral screening 3D/tomosynthesis, performed at [facility]. FINDINGS: The breast tissue is extremely dense which could obscure a lesion on mammography. Screening. Digital screening (2D) mammography was performed bilaterally in the CC and MLO projections. Additionally, breast tomosynthesis (3D mammography) was performed bilaterally in the CC and MLO projections. Todays exam was compared to the prior exam/exams. By history, the patient has no complaints of a palpable breast abnormality or other significant breast complaints. The breasts are unchanged in size and shape. There is a stable, benign intramammary lymph node on the right. There are no paco-soft tissue densities or spiculated masses. There is no internal architectural distortion. There are no suspicious paco-calcific clusters. Skin thickening or nipple retraction is not present. The Volpara volumetric breast density category is D, the breasts are extremely dense which lowers the sensitivity of mammography. IMPRESSION: BI-RADS Category 2- Benign Findings. There is no evidence of malignant alteration of the breasts. Followup examination recommended in one year. This mammogram was read with the assistance of [employer],an FDA approved computer aided detection system for mammography. The lifetime Tyrer-Cuzick score is 13.6% Negative x-ray reports should not delay surgical consultation if a dominant or clinically suspicious mass is present. Not all breast cancers can be identified by mammography. Therefore, we recommend that you continue to perform regular breast self-examination and physical examination and then promptly contact your physician of any concerns or changes. Adenosis and dense breasts may obscure an underlying neoplasm. No significant changes when compared with prior studies. Assessment: BI-RADS/ACR category 2 mammogram. Benign Findings. Recommendation Routine screening mammogram of both breasts in 1 year. Electronically Signed By: Cesar Bhatt MD 01/29/21 [id number]
== END ==
LOC: M WHC 10:24
PROVIDERS: ATTEND Nurse Practitioner Family
DX: Z12.31 Encounter for screening mammogram for malignant neoplasm of breast (principal)

== ENCOUNTER → 2021-01-30 | Outpatient (CLI) | payer OTHER ==
--- NOTE | 2021-01-30 15:34 | REP ---
INDICATION: PNEUMOTHORAX, UNSPECIFIED COMPARISON: 01/02/2021 TECHNIQUE: PA and lateral. FINDINGS: The mediastinum and cardiac silhouette are normal. The lung coronel are clear and without acute consolidation, effusion, or pneumothorax. The skeletal structures are intact and normal. IMPRESSION: No acute cardiopulmonary process. No evidence for pneumothorax. <Electronically signed by Leroy Gomes > 01/30/21 [id number]
== END ==
LOC: M PLAIMG 14:47
PROVIDERS: ATTEND Thoracic Surgery (Cardiothoracic Vascular Surgery)
DX: J93.9 Pneumothorax, unspecified (principal); J45.30 Mild persistent asthma, uncomplicated

== ENCOUNTER → 2021-09-26 | Outpatient (CLI) | payer OTHER ==
[~2021-09-26] MED LIST changes: -D31000TA2 PO; +FEXO-117 PO; -FEXO180T58 PO; -OLOP0.1D OU; +OLOP5DRO16 OU; +PROAAER10 INH; +VITA100091 PO; +VITA100093 PO; +ZINC1TAB2 PO; +[UNRECOGNIZED DRUG - CODE] XX
== END ==
LOC: M WHC 14:49
PROVIDERS: ATTEND Family Medicine
DX: Z12.31 Encounter for screening mammogram for malignant neoplasm of breast (principal); Z53.8 Procedure and treatment not carried out for other reasons